=== PATIENT | male | born 1960 | race Caucasian/White ===

== ENCOUNTER 2022-11-30 15:26 | Outpatient (CLI) | payer OTHER, SELFPAY ==
[2022-11-30 22:30] LABS: Creatinine Urine 18.2 mg/dL
[2022-11-30 22:33] LABS: Microalbumin Creatinine Ratio 50 mg/g (0-30); Microalbumin Urine < 1 mg/dL
[2022-11-30 22:45] LABS: PSA Screen* 3.86 ng/mL (0.10-4.00)
== END 2022-11-30 15:27 | disposition home or self-care (01) ==
PROVIDERS: PCP Family Medicine; Visit Provider Family Medicine
DX: Z01.818 Encounter for other preprocedural examination (principal); E11.9 Type 2 diabetes mellitus without complications; E78.00 Pure hypercholesterolemia, unspecified; Z95.1 Presence of aortocoronary bypass graft; Z12.5 Encounter for screening for malignant neoplasm of prostate
CPT/HCPCS: 82043; 82570; 84153

== ENCOUNTER 2022-12-08 08:55 | Outpatient (CLI) | payer OTHER, SELFPAY | END 2022-12-08 08:56 | disposition home or self-care (01) | LOC: OP CLINIC 08:56 | PROVIDERS: PCP Family Medicine; Visit Provider Surgery | DX: Z12.11 Encounter for screening for malignant neoplasm of colon (principal); K57.30 Diverticulosis of large intestine without perforation or abscess without bleeding | CPT/HCPCS: 45378; J2250; J3010 ==

== ENCOUNTER 2024-03-31 09:14 | Outpatient (CLI) | payer OTHER, SELFPAY ==
--- OUTSIDE RECORDS SUMMARY | 2024-03-31 09:17 | XMS_ITS | Clinical Summary ---
Author Organization [facility] Address [address] [place] [address] Care Team Providers Care Engraver Block Name Role Phone Rufus Kohler MD Primary Care Provider [phone] Jamshid Loza MD Unavailable Allergies No known active allergies Medications Medication Sig Dispensed Refills Start Date End Date Status multivitamin w/minerals (THERA-VIT-M) tablet Take 1 tablet by mouth daily Active TURMERIC PO Take 1 tablet by mouth daily Active aspirin (ASA) 325 MG EC tabletIndications:C oronary artery disease involving [place] coronary artery of [place] heart, unspecified whether angina present Take 1 tablet (325 mg) by mouth daily 30 tablet 11/07/2021 Active Vitamin D, Cholecalciferol, 25 MCG (1000 UT) TABS Take 5,000 Units by mouth daily Active Nzvdf-2-dzpc Ethyl Esters (FISH OIL OMEGA-3 FATTY ACID) 320MG/ML oral suspension Take by mouth daily Activ e Ascorbic Acid (VITAMIN C) 500 MG CAPS Take by mouth daily Activ e co-enzyme Q-10 50 MG CAPS Unknown dosage at this time Active aspirin (ASA) 325 MG tablet Take 1 tablet (325 mg) by mouth daily 11/19/2022 Active lisinopril (ZESTRIL) 10 MG tabletIndications:C oronary artery disease involving [place] coronary artery of [place] heart, unspecified whether angina present Take 1 tablet (10 mg) by mouth daily 90 tablet 3 02/02/2024 Active metoprolol succinate ER (TOPROL XL) 25 MG 24 hr tabletIndications:C oronary artery disease involving [place] coronary artery of [place] heart, unspecified whether angina present Take 1 tablet (25 mg) by mouth daily Appointment required for further refills 90 tablet 3 02/02/2024 Active nitroGLYcerin (NITROSTAT) 0.4 MG sublingual tabletIndications:C oronary artery disease involving [place] coronary artery of [place] heart, unspecified whether angina present For chest pain place 1 tablet under the tongue every 5 minutes for 3 doses. If symptoms persist 5 minutes after 1st dose call 911. 30 tablet 3 02/02/2024 Active Active Problems Problem Noted Date Diagnosed Date Coronary artery disease 11/01/2021 Unstable angina 10/30/2021 Abnormal cardiovascular stress test 10/30/2021 Encounters Date Type Department Care Team Description 02/02/2024 8:45 AM CDT Office Visit [address] [place] [address] Jamshid Loza MD Screening for heart disease (Primary Dx); Coronary artery disease involving [place] coronary artery of [place] heart, unspecified whether angina present; S/P CABG (coronary artery bypass graft) 02/02/2024 MyC Medical Advice [address] [place] [address] Jamshid Loza MD 02/02/[address] [place] [phone] Kalyn Estrella RN 02/02/2024 Travel 01/27/2024 7:30 AM CDT Lab [address] [place] [phone] Coronary artery disease 01/26/2024 2:57 PM CDT - 01/26/2024 11:59 PM CDT Hospital Encounter [facility] [address] [place] [address] [address] [place] [phone] Jamshid Loza MD 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); Dyspnea on exertion Discharge Disposition: Home or Self Care 01/26/2024 Travel 01/26/2024 MyC Medical Advice [address] [place] [phone] Jamshid Loza MD 01/21/2024 MyC Medical Advice [facility] [address] [facility] [address] [place] [address] Stella Emmanuel 01/21/2024 Telephone [facility] [address] [facility] [address] [place] [address] Neda Justin, RN Appointment 01/20/2024 MyC Medical Advice M [facility] [address] [facility] [address] [place] [phone] Jamshid Loza MD MyChart Communication from Last 3 Months Immunizations Name Administration Dates Next Due TDAP Vaccine (Adacel) 08/27/2014 Family History Medical History Relation Comments Coronary Artery Disease Brother estimate d age onset per pt Coronary Artery Disease Father both bro ther and father with borderline early coronary artery disease Relation Status Comments Brother Father Social History Tobacco Use Types Packs/Day Years Used Date Smoking Tobacco: Never Smokeless Tobacco: Never Tobacco Cessation:Counseling Given: Not Answered Alcohol Use Standard Drinks/Week Comments Not Currently 0 (1 standard drink = 0.6 oz pur e alcohol) Adolescent Education Answer Date Record ed Getting School Help Needed Not on file 08/08 Sex and Gender Information Value Date Recorded Sex Assigned at Not on file Gender Identity Not on file Sexual Orientation Not on file Last Filed Vital Signs Vital Sign Reading Time Taken Comments Blood Pressure 120/66 02/02/2024 8:51 AM CDT Pulse 82 02/02/2024 8:51 AM CDT Temperature 36.8 ??C (98.2 ??F) 11/08/2021 7:31 AM CS T Respiratory Rate 18 11/08/2021 7:[address] MAINTENANCE SUPERVISOR Oxygen Saturation 99% 02/02/2024 8:51 AM CDT Inhaled Oxygen Concentration - - Weight 76.3 kg (168 lb 3.2 oz) 02/02/2024 8:51 A M CDT Height 167.6 cm (5' 6) 02/02/2024 8:51 AM CDT Body Mass Index 27.15 02/02/2024 8:51 AM CDT Plan of Treatment Health Maintenance Due Date Last Done Comments ADVANCE CARE PLANNING 1960 ANNUAL REVIEW OF HM ORDERS 1960 CT COLONOGRAPHY 1961 FIT 1960 FLEX SIG 1960 YEARLY PREVENTIVE VISIT 1960 sDNA (Cologuard) 1960 Pneumococcal Vaccine: Pediatrics (0 to 5 Years) and At-Risk Patients (6 to 64 Years) (1 of 2 - PCV) 1967 HIV SCREENING 1976 HEPATITIS C SCREENING 1979 ZOSTER IMMUNIZATION (1 of 2) 2011 RSV VACCINE ( & 60+) (1 - 1-dose 60+ series) 2021 COLONOSCOPY 10/24/2021 10/24/2011 COLORECTAL CANCER SCREENING 10/24/2021 COVID-19 Vaccine ( - season) 2023 PHQ-2 (once per calendar year) 2023 INFLUENZA VACCINE (Season Ended) 2024 DTAP/TDAP/TD IMMUNIZATION (2 - Td or Tdap) 08/27/2024 08/27/2014, 10/25/2013, 02/03/2007 LIPID 01/26/2025 01/27/2024, 10/26, 01/20/2022, Additional history exists GLUCOSE 01/26/2027 01/27/2024, 03/26, 11/08/2021, Additional history exists HPV IMMUNIZATION Aged Out No longer e ligible based on patient's age to complete this topic IPV IMMUNIZATION Aged Out No longer e ligible based on patient's age to complete this topic MENINGITIS IMMUNIZATION Aged Out No l onger eligible based on patient's age to complete this topic RSV MONOCLONAL ANTIBODY Aged Out No l onger eligible based on patient's age to complete this topic Procedures Procedure Name Priority Date/Time Associated Diagnosis Comments EKG 12-LEAD COMPLETE W/READ - CLINICS Routine 02/02/2024 Screening for heart disease HEMOGLOBIN A1C Routine 01/27/2024 7:35 AM CDT Coronary artery disease LIPID PROFILE Routine 01/27/2024 7:35 AM CDT Coronary artery disease BASIC METABOLIC PANEL Routine 01/27/2024 7:35 AM CDT Coronary artery disease ECHO COMPLETE WITH CONTRAST Routine 01/26/2024 3:35 PM CDT 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 Yes 01/27/2024 5:56 PM CDT [facility] Blood STRUCTURE OF LEFT UPPER LIMB / Unknown Venipuncture / Unknown 01/27/2024 7:35 AM CDT 01/27/2024 7:39 AM CDT Narrative [facility] - 01/27/2024 5:56 PM CDT Cholesterol Desirable: ??<200 mg/dL Triglycerides Normal: ??Less than 150 mg/dL Borderline High: ??150-199 mg/dL High: ??200-499 mg/dL Very High: ??Greater than or equal to 500 mg/dL Direct Measure HDL Female: ??Greater than or equal to 50 mg/dL Male: ??Greater than or equal to 40 mg/dL LDL Cholesterol Desirable: ??<100mg/dL Above Desirable: ??100-129 mg/dL Borderline High: ??130-159 mg/dL High: ??160-189 mg/dL Very High: ??>= 190 mg/dL Non HDL Cholesterol Desirable: ??130 mg/dL Above Desirable: ??130-159 mg/dL Borderline High: ??160-189 mg/dL High: ??190-219 mg/dL Very High: ??Greater than or equal to 220 mg/dL Jamshid Loza MD LAB - BLOOD ORDERABL ES [facility] [place] [facility] [address] [facility] [address] [facility], Room [address] [place] [address] [address] Lab (1st floor, no room number) [place] [id number] * Hemoglobin A1c (01/27/2024 7:35 AM CDT) Hemoglobin A1C 5.5 <5.7 % 01/27/2024 8:08 AM CDT [facility] Comment: Normal <5.7% Prediabetes 5.7-6.4% ?? Diabetes 6.5% or higher Note: Adopted from ADA consensus guidelines. Blood STRUCTURE OF LEFT UPPER LIMB / Unknown Venipuncture / Unknown 01/27/2024 7:35 AM CDT 01/27/2024 7:39 AM CDT Jamshid Loza MD LAB - BLOOD ORDERABL ES Performing Organization Address City/[facility]/ZIP Co de Phone Number LABORATORY [facility] [address] Lab (1st floor, no room number) [place] [address] * (ABNORMAL) Basic metabolic panel (01/27/2024 7:35 AM CDT) Sodium 141 135 - 145 mmol/L 01/27/2024 8:14 AM CDT [facility] Comment:Reference intervals for this test were updated on 07/20/2023 to more accurately reflect our healthy population. There may be differences in the flagging of prior results with similar values performed with this method. Interpretation of those prior results can be made in the context of the updated reference intervals. Potassium 4.6 3.4 - 5.3 mmol/L 01/27/2024 8:14 AM CDT LABORATORY Chloride 106 98 - 107 mmol/L 01/27/2024 8:14 AM CDT LABORATORY Carbon Dioxide (CO2) 23 22 - 29 mmol/L 01/27/2024 8:14 AM CDT LABORATORY Anion Gap 12 7 - 15 mmol/L 01/27/2024 8:14 AM CDT LABORATORY Urea Nitrogen 19.0 8.0 - 23.0 mg/dL 01/27/2024 8:14 AM CDT LABORATORY Creatinine 0.71 0.67 - 1.17 mg/dL 01/27/2024 8:14 AM CDT LABORATORY GFR Estimate >90 >60 mL/min/1. 73m2 01/27/2024 8:14 AM CDT LABORATORY Calcium 9.3 8.8 - 10.2 mg/dL 01/27/2024 8:14 AM CDT LABORATORY Glucose 107(H) 70 - 99 mg/dL 01/27/2024 8:14 AM CDT LABORATORY Blood STRUCTURE OF LEFT UPPER LIMB / Unknown Venipuncture / Unknown 01/27/2024 7:35 AM CDT 01/27/2024 7:39 AM CDT Jamshid Loza MD LAB - BLOOD ORDERABL ES LABORATORY [facility] [address] [facility] Lab (1st floor, no room number) [place] [address], [facility] * ECHO COMPLETE WITH CONTRAST (01/26/2024 3:35 PM CDT) LVEF 55-60% CARDIOLOGY RESULTS Anatomical Region Laterality Modality Echocardiography 01/26/2024 3:00 PM CDT Narrative 01/26/2024 11:24 PM CDT [id number]^DAGO^JAMSHID^[facility] Echocardiography Laboratory [address] [place] [address] Name: KAYLAH LIU : 1960 Study Date: 01/26/2024 03:00 PM Age: 63 yrs Gender: Male Patient Location: [facility] Reason For Study: 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 Optison ([facility] #[id number]) given intravenously. Interpretation Summary Left ventricular systolic function is normal. The visual ejection fraction is 55-60%. Normal right ventricular size and function. No significant valve dysfunction. The inferior vena cava was normal in size with preserved respiratory variability. There is no pericardial effusion. No change from study dated 01/06/2021. Left Ventricle The left ventricle is normal in size. Left ventricular systolic function is normal. The visual ejection fraction is 55-60%. Left ventricular diastolic function is indeterminate. Normal left ventricular wall motion. Right Ventricle The right ventricle is normal size. The right ventricular systolic function is normal. Atria Normal left atrial size. Right atrial size is normal. Mitral Valve There is mild mitral annular calcification. Tricuspid Valve The tricuspid valve is not well visualized, but is grossly normal. The right ventricular systolic pressure is approximated at 24.3 mmHg plus the right atrial pressure. Right ventricular systolic pressure is normal. Aortic Valve The aortic valve is trileaflet with aortic valve sclerosis. Pulmonic Valve The pulmonic valve is normal in structure and function. Vessels The aortic root is normal size. Normal size ascending aorta. The inferior vena cava was normal in size with preserved respiratory variability. Pericardium There is no pericardial effusion. MMode/2D Measurements & Calculations IVSd: 0.93 cm LVIDd: 4.6 cm LVIDs: 3.0 cm LVPWd: 0.90 cm FS: 35.6 % LV mass(C)d: 142.4 grams LV mass(C)dI: 76.9 grams/m2 asc Aorta Diam: 3.8 cm Asc Ao diam index BSA (cm/m2): 2.0 Asc Ao diam index Ht(cm/m): 2.3 EF Biplane: 58.7 % LA Volume (BP): 27.4 ml LA Volume Index (BP): 14.8 ml/m2 RV Base: 2.8 cm RWT: 0.39 TAPSE: 1.2 cm Doppler Measurements & Calculations MV E max dimitris: 59.1 cm/sec MV A max dimitris: 75.4 cm/sec MV E/A: 0.78 MV dec time: 0.22 sec Ao V2 max: 166.7 cm/sec Ao max P.0 mmHg Ao V2 mean: 105.7 cm/sec Ao mean P.3 mmHg Ao V2 VTI: 28.5 cm LV V1 max P.7 mmHg LV V1 max: 95.8 cm/sec LV V1 VTI: 18.5 cm PA acc time: 0.12 sec TR max dimitris: 246.4 cm/sec TR max P.3 mmHg AV Dimitris Ratio (DI): 0.57 E/E' av.8 Lateral E/e': 7.3 Medial E/e': 8.2 RV S Dimitris: 6.9 cm/sec Report approved by: Adilene Munroe 01/26/2024 11:24 PM Procedure Note Tereza Dillard MD - 01/26/2024 [id number]^DAGO^JAMSHID^[facility] Echocardiography Laboratory [address] [place], [place] [address] Name: KAYLAH LIU : 1960 Study Date: 01/26/2024 03:00 PM Age: 63 yrs Gender: Male Patient Location: [facility] Reason For Study: Ischemic heart disease due to coronary arteryobstruction (H), I Ordering Physician: JAMSHID LOZA Referring Physician: JAMSHID LOZA Performed By: Neo Juan BSA: 1.9 m2 Height: 66 in Weight: 167 lb HR: 76 BP: 128/80 mmHg Procedure Complete Echo Adult. Optison ([facility] #[id number]) given intravenously. Interpretation Summary Left ventricular systolic function is normal. The visual ejection fraction is 55-60%. Normal right ventricular size and function. No significant valve dysfunction. The inferior vena cava was normal in size with preserved respiratory variability. There is no pericardial effusion. No change from study dated 01/06/2021. Left Ventricle The left ventricle is normal in size. Left ventricular systolic functionis normal. The visual ejection fraction is 55-60%. Left ventriculardiastolic function is indeterminate. Normal left ventricular wall motion. Right Ventricle The right ventricle is normal size. The right ventricular systolicfunction is normal. Atria Normal left atrial size. Right atrial size is normal. Mitral Valve There is mild mitral annular calcification. Tricuspid Valve The tricuspid valve is not well visualized, but is grossly normal. Theright ventricular systolic pressure is approximated at 24.3 mmHg plus theright atrial pressure. Right ventricular systolic pressure is normal. Aortic Valve The aortic valve is trileaflet with aortic valve sclerosis. Pulmonic Valve The pulmonic valve is normal in structure and function. Vessels The aortic root is normal size. Normal size ascending aorta. The inferiorvena cava was normal in size with preserved respiratory variability. Pericardium There is no pericardial effusion. MMode/2D Measurements & Calculations IVSd: 0.93 cm LVIDd: 4.6 cm LVIDs: 3.0 cm LVPWd: 0.90 cm FS: 35.6 % LV mass(C)d: 142.4 grams LV mass(C)dI: 76.9 grams/m2 asc Aorta Diam: 3.8 cm Asc Ao diam index BSA (cm/m2): 2.0 Asc Ao diam index Ht(cm/m): 2.3 EF Biplane: 58.7 % LA Volume (BP): 27.4 ml LA Volume Index (BP): 14.8 ml/m2 RV Base: 2.8 cm RWT: 0.39 TAPSE: 1.2 cm Doppler Measurements & Calculations MV E max dimitris: 59.1 cm/sec MV A max dimitris: 75.4 cm/sec MV E/A: 0.78 MV dec time: 0.22 sec Ao V2 max: 166.7 cm/sec Ao max P.0 mmHg Ao V2 mean: 105.7 cm/sec Ao mean P.3 mmHg Ao V2 VTI: 28.5 cm LV V1 max P.7 mmHg LV V1 max: 95.8 cm/sec LV V1 VTI: 18.5 cm PA acc time: 0.12 sec TR max dimitris: 246.4 cm/sec TR max P.3 mmHg AV Dimitris Ratio (DI): 0.57 E/E' av.8 Lateral E/e': 7.3 Medial E/e': 8.2 RV S Dimitris: 6.9 cm/sec Report approved by: Adilene Munroe 01/26/2024 11:24 PM Jamshid Loza MD CV ECHO ORDERABLES from Last 3 Months Advance Directives For more information, please contact: [phone] * Full Code (Latest Code Status on File) Date Activated Date Inactivated Comments 11/04/2021 1:17 PM 11/08/2021 1:15 PM All basic an d advanced life-sustaining interventions are performed as appropriate Question Answer Comments Code status determined by: Unable to dis cuss and no AD/POLST on file; continue PREVIOUSLY ORDERED code status * Full Code Date Activated Date Inactivated Comments 11/01/2021 9:59 PM 11/04/2021 1:17 PM All basic and advanced life-sustaining interventions are performed as appropriate Question Answer Comments Code status determined by: Discussion with patie nt/ legal decision maker * Full Code Date Activated Date Inactivated Comments 11/01/2021 2:30 PM 11/01/2021 8:54 PM Question Answer Comments Code status determined by: Discussion with patie nt/ legal decision maker * Full Code Date Activated Date Inactivated Comments 10/30/2021 2:53 PM 11/01/2021 2:30 PM All basic and advanced life-sustaining interventions are performed as appropriate Question Answer Comments Code status determined by: Discussion with patie nt/ legal decision maker Care Teams Engraver Block Relationship Specialty Start Date End Date Rufus Kohler MD PCP - General Family Medicine 11/07/21 Jamshid Loza MD [address] [facility] [address] [place] [address] Assigned Heart and Vascular Provider 01/18/22
--- OUTSIDE RECORDS SUMMARY | 2024-03-31 09:17 | XMS_ITS | Encounter Summary ---
Author Organization [facility] Address [address] [place] [address]. [place] [address] Care Team Providers Care Chief Lifestyle Officer Name Role Phone Rufus Kohler MD Primary Care Provider [phone] Yang Tran MD Unavailable Reason for Visit * Reason Onset Date Comments Refill Request 12/22/2023 Lisinopril Encounter Details Date Type Department Care Team (Late st Contact Info) Description 12/22/2023 Refill [facility] Heart [facility] [address] [place] [address] Yang Tran MD [address] [facility] [address] [place], [place] [id number] Refill Request (Lisinopril) Social History Tobacco Use Types Packs/Day Years Used Date Smoking Tobacco: Never Smokeless Tobacco: Never Alcohol Use Standard Drinks/Week Comments Not Currently 0 (1 standard drink = 0.6 oz pur e alcohol) Adolescent Education Answer Date Record ed Getting School Help Needed Not on file 08/08 Sex and Gender Information Value Date Recorded Sex Assigned at Not on file Gender Identity Not on file Sexual Orientation Not on file documented as of this encounter Miscellaneous Notes * Telephone Encounter - Linda Schwartz RN - 12/22/2023 9:19 AM CST [facility] Cardiology Refill Guideline reviewed. Medication meets criteria for refill. ACCOUNTING CLERK documented in this encounter Plan of Treatment Not on file documented as of this encounter Visit Diagnoses Diagnosis Coronary artery disease involving the [place] coronary artery of the [place] heart, unspecified whether angina present documented in this encounter Care Teams Chief Lifestyle Officer Relationship Specialty Start Date End Date Rufus Kohler MD PCP - General Family Medicine 11/07/21 Yang Tran MD [address] [place] [address] Assigned Heart and Vascular Provider 01/18/22 documented as of this encounter
--- OUTSIDE RECORDS SUMMARY | 2024-03-31 09:17 | XMS_ITS | Encounter Summary ---
Author Organization [place] Address [address] [facility] 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) Dyspnea on exertion Procedures Echocardiogram Complete [facility] TTE W/DOPPLER, COMPLETE [facility] ECHO COMPLETE W DOPPLER W CONTRAST [facility] ECHO COMPLETE W DOPPLER W/O CONTRAST [facility] IV PUSH SINGLE, INITIAL SUBSTANCE [facility] US GUIDE FOR PERICARDIOCENTESIS [facility] ECHO MYOCARD BX ZZC INJECTION, PERFLUTREN LIPID MICROSPHERES, PER ML [facility] STATISTIC IV PUSH SINGLE INITIAL SUBSTANCE VA ECHO MYOCARD BX VA INJECTION, PERFLUTREN LIPID MICROSPHERES, PER ML VA TTE W/DOPPLER, COMPLETE VA IV PUSH SINGLE, INITIAL SUBSTANCE VA TTE W/DOPPLER, COMPLETE VA TTE W/DOPPLER, COMPLETE HC US GUIDE FOR PERICARDIOCENTESIS HC ECHO MYOCARD BX HC IV PUSH SINGLE, INITIAL SUBSTANCE HC STATISTIC IV PUSH SINGLE INITIAL SUBSTANCE HC ECHO COMPLETE W DOPPLER W CONTRAST HC ECHO COMPLETE W DOPPLER W/O CONTRAST Jamshid Loza MD [address] [facility] [address] [place] [address] [facility] [address] [facility] [address] [place] [address] Referral ID Status Reason Start Date Expiration Date Visits Re quested Visits Authorized [id number] Closed 01/26/2024 01/23/2025 1 1 Reason for Visit * CV Testing (Routine) - Closed Specialty Diagnoses / Procedures Referred By Patty t Referred To Contact Cardiology Diagnoses 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) Dyspnea on exertion Procedures Echocardiogram Complete [facility] TTE W/DOPPLER, COMPLETE [facility] ECHO COMPLETE W DOPPLER W CONTRAST [facility] ECHO COMPLETE W DOPPLER W/O CONTRAST [facility] IV PUSH SINGLE, INITIAL SUBSTANCE [facility] US GUIDE FOR PERICARDIOCENTESIS [facility] ECHO MYOCARD BX ZZC INJECTION, PERFLUTREN LIPID MICROSPHERES, PER ML [facility] STATISTIC IV PUSH SINGLE INITIAL SUBSTANCE VA ECHO MYOCARD BX VA INJECTION, PERFLUTREN LIPID MICROSPHERES, PER ML VA TTE W/DOPPLER, COMPLETE VA IV PUSH SINGLE, INITIAL SUBSTANCE VA TTE W/DOPPLER, COMPLETE VA TTE W/DOPPLER, COMPLETE HC US GUIDE FOR PERICARDIOCENTESIS HC ECHO MYOCARD BX HC IV PUSH SINGLE, INITIAL SUBSTANCE HC STATISTIC IV PUSH SINGLE INITIAL SUBSTANCE HC ECHO COMPLETE W DOPPLER W CONTRAST HC ECHO COMPLETE W DOPPLER W/O CONTRAST Jamshid Loza MD [address] [place] [address] [facility] [address] [place] [address] Referral ID Status Reason Start Date Expiration Date Visits Re quested Visits Authorized [id number] Closed 01/26/2024 01/23/2025 1 1 Encounter Details Date Type Department Care Team (Latest Contact Info) Description 01/26/2024 2:57 PM CDT - 01/26/2024 11:59 PM CDT Hospital Encounter [facility] [address] [address] Jamshid Loza MD [address] [place] [id number] 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); Dyspnea on exertion Discharge Disposition: Home or Self Care Social History Tobacco Use Types Packs/Day Years [...] on file documented as of this encounter Medications at Time of Discharge Medication Sig Dispensed Refills Start Date End Date Ascorbic Acid (VITAMIN C) 500 MG CAPS Take by mouth daily aspirin (ASA) 325 MG EC tabletIndications:Eve nary artery disease involving [place] coronary artery of [place] heart, unspecified whether angina present Take 1 tablet (325 mg) by mouth daily 30 tablet 11/07/2021 co-enzyme Q-10 50 MG CAPS Unknown dosage at this time multivitamin w/minerals (THERA-VIT-M) tablet Take 1 tablet by mouth daily Dcwji-0-ocdh Ethyl Esters (FISH OIL OMEGA-3 FATTY ACID) 320MG/ML oral suspension Take by mouth daily TURMERIC PO Take 1 tablet by mouth daily Vitamin D, Cholecalciferol, 25 MCG (1000 UT) TABS Take 5,000 Units by mouth daily aspirin (ASA) 325 MG tablet Take 1 tablet (325 mg) by mouth daily 11/19/2022 lisinopril (ZESTRIL) 10 MG tabletIndications:Eve nary artery disease involving [place] coronary artery of [place] heart, unspecified whether angina present Take 1 tablet (10 mg) by mouth daily 90 tablet 12/22/2023 02/02/2024 metoprolol succinate ER (TOPROL XL) 25 MG 24 hr tabletIndications:Eve nary artery disease involving [place] coronary artery of [place] heart, unspecified whether angina present Take 1 tablet (25 mg) by mouth daily Appointment required for further refills 90 tablet 12/21/2023 02/02/2024 nitroGLYcerin (NITROSTAT) 0.4 MG sublingual tabletIndications:Eve nary artery disease involving [place] coronary artery of [place] heart, unspecified whether angina present For chest pain place 1 tablet under the tongue every 5 minutes for 3 doses. If symptoms persist 5 minutes after 1st dose call 911. 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) Dyspnea on exertion documented in this encounter Results * ECHO COMPLETE WITH CONTRAST (01/26/2024 3:35 PM CDT) LVEF 55-60% CARDIOLOGY RESULTS Anatomical Region Laterality Modality Echocardiography 01/26/2024 3:00 PM CDT Narrative 01/26/2024 11:24 PM CDT [id number]^DAGO^JAMSHID^Dave [facility] Echocardiography Laboratory [address] [place] [address] Name: KAYLAH LIU : 1960 Study Date: 01/26/2024 03:00 PM Age: 63 yrs Gender: Male Patient Location: [facility] Reason For Study: 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 Optison ([facility] #[id number]) given intravenously. Interpretation Summary Left ventricular systolic [...] Procedure Note Tereza Dillard MD - 01/26/[id number]^DAGO^JAMSHID^Dave [facility] Echocardiography Laboratory [address] [place] [address] Name: KAYLAH LIU : 1960 Study Date: 01/26/2024 03:00 PM Age: 63 yrs Gender: Male Patient Location: [facility] Reason For Study: Ischemic heart disease due to coronary arteryobstruction (H), I Ordering Physician: JAMSHID LOZA Referring Physician: JAMSHID LOZA Performed By: Neo Juan BSA: 1.9 m2 Height: 66 in Weight: 167 lb HR: 76 BP: 128/80 mmHg Procedure Complete Echo Adult. Optison ([facility] #[id number]) given intravenously. 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) Acute coronary occlusion without mycocardial infarction Dyspnea on exertion Other dyspnea and respiratory abnormality documented in this encounter Administered Medications Inactive Administered Medications - up to 3 most recent administrations Medication Order MAR Action Action Date Dose Rate Site perflutren diluted 1mL to 2mL with saline (OPTISON) diluted injection 9 mL 9 mL, Intravenous, ONCE, On Wed01/26/24 at 1600, For 1 dose $Given 01/26/2024 3:36 PM CDT 9 mLs sodium chloride (PF) 0.9% PF flush 10 mL 10 mL, Intravenous, ONCE, On Wed01/26/24 at 1600, For 1 dose $Given 01/26/2024 3:36 PM CDT 20 mLs documented in this encounter Care Teams Telegraphic Typewriter Installer Relationship Specialty Start Date End Date Rufus Kohler MD PCP - General Family Medicine 11/07/21 Jamshid Loza MD [address] [place] [address] Assigned Heart and Vascular Provider 01/18/22 documented as of this encounter
--- OUTSIDE RECORDS SUMMARY | 2024-03-31 09:17 | XMS_ITS | Encounter Summary ---
Author Organization [place] Address [address] [facility] [place] [address] Care Team Providers Care Deli Cook Name Role Phone Rufus Kohler MD Primary Care Provider [phone] Yang rTan MD Unavailable Encounter Details Date Type Department Care Team (Latest Contact Info) Description 02/02/2024 Travel Social History Tobacco Use Types Packs/Day Years [...] on file documented as of this encounter Plan of Treatment Not on file documented as of this encounter Visit Diagnoses Not on filedocumented in this encounter Care Teams Deli Cook Relationship Specialty Start Date End Date Rufus Kohler MD PCP - General Family Medicine 11/07/21 Yang Tran MD [address] , [facility] [address] [place], [place] [address] Assigned Heart and Vascular Provider 01/18/22 documented as of this encounter
--- OUTSIDE RECORDS SUMMARY | 2024-03-31 09:17 | XMS_ITS | Encounter Summary ---
Author Organization [place] Address [address] [place] [address] Care Team Providers Care Sportspersons Name Role Phone Rufus Kohler MD Primary Care Provider [phone] Yang Tran MD Unavailable Encounter Details Date Type Department Care Team (Latest Contact Info) Description 01/26/2024 Travel Social History Tobacco Use Types Packs/Day [...] on filedocumented in this encounter Care Teams Sportspersons Relationship Specialty Start Date End Date Rufus Kohler MD PCP - General Family Medicine 11/07/21 Yang Tran MD [address] , [facility] [address] [place], [place] [address] Assigned Heart and Vascular Provider 01/18/22 documented as of this encounter
--- OUTSIDE RECORDS SUMMARY | 2024-03-31 09:17 | XMS_ITS | Encounter Summary ---
Author Organization [place] Address [address] [place] [address]. [place] [address] Care Team Providers Care Web Communications Specialist Name Role Phone Rufus Kohler MD Primary Care Provider [phone] Yang Tran MD Unavailable Encounter Details Date Type Department Care Team (Late st Contact Info) Description 02/02/2024 MyC Medical Advice [facility] [place] [address] [facility] [address] [place], [place] [id number] Yang Tran MD [address] [facility] [address] [place], [place] [id number] Social History Tobacco Use Types Packs/Day Years [...] encounter Miscellaneous Notes * Telephone Encounter - Parris Loja RN - 02/03/2024 10:56 AM CDT Images from the original note were not included. Edilberto Robles [facility] Heart Team 2 [facility]'s [facility] their fax #is if it don't work let me know. 1100 office note, echo, EKG and labs faxed to [facility] as requested. Update sent to patient. * Telephone Encounter - Parris Loja RN - 02/03/2024 8:40 AM CDT Images from the original note were not included. My chart message from patient: Edilberto Robles [facility] Heart Team [address] Tran give you the info that [facility] needs for my dot health card? Reply to patient: Augusto, Mr. Robles, We are waiting for the dictation to drop into your chart. Where are we sending the office note and echo? We work out of the [place] office, so we need the nameof your provider and the fax # to send records. Thank you Team 2 R.N.s [phone] documented in this encounter Plan of Treatment Not on file documented as of this encounter Visit Diagnoses Not on filedocumented in this encounter Care Teams Web Communications Specialist Relationship Specialty Start Date End Date Rufus Kohler MD PCP - General Family Medicine 11/07/21 Yang Tran MD [address] [facility] [address] [place] [address] Assigned Heart and Vascular Provider 01/18/22 documented as of this encounter
--- OUTSIDE RECORDS SUMMARY | 2024-03-31 09:17 | XMS_ITS | Encounter Summary ---
Author Organization [place] Address [address] [place] [address] Care Team Providers Care Core Feeder Name Role Phone Rufus Kohler MD Primary Care Provider [phone] Yang Tran MD Unavailable Encounter Details Date Type Department Care Team (Late st Contact Info) Description 02/02/2024 Telephone [facility] [address] [place] [id number] Kalyn Estrella RN Social History Tobacco Use Types Packs/Day Years [...] encounter Miscellaneous Notes * Telephone Encounter - Kalyn Estrella RN - 02/02/2024 10:20 AM CDT OV today 02-02-24DrJo Tran note note completed at this time. Send when completed. 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 I believe it is [facility] thanks documented in this encounter Plan of Treatment Not on file documented as of this encounter Visit Diagnoses Not on filedocumented in this encounter Care Teams Core Feeder Relationship Specialty Start Date End Date Rufus Kohler MD PCP - General Family Medicine 11/07/21 Yang Tran MD [address] [facility] [address] [place] [id number] Assigned Heart and Vascular Provider 01/18/22 documented as of this encounter
--- OUTSIDE RECORDS SUMMARY | 2024-03-31 09:17 | XMS_ITS | Encounter Summary ---
Author Organization [place] Address [address] [place] [address]. [place] [address] Care Team Providers Care Steam Shovelman Name Role Phone Rufus Kohler MD Primary Care Provider [phone] Yang Tran MD Unavailable Reason for Visit * Reason Onset Date Comments MyChart Communication 01/20/2024 Encounter Details Date Type Department Care Team (Latest Contact Info) Description 01/20/2024 [facility] Adv[facility] [address] [facility] [address] [place] [address] Yang Tran MD [address] [facility] [address] [place] [address] MyChart Communication Social History Tobacco Use Types Packs/Day Years [...] Telephone Encounter - Parris Loja RN - 01/20/2024 4:06 PM CDT Images from the original note were not included. 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 If you have any question please contact me. I will start working next week sometime. Lookingfoward to hearing from you. Augusto, Mr. Robles, Your last visit here was on 11/19/2022. That is more than a year ago. We cannot write a DOT letter off of last year's information. You need to schedule an office visit. Your last stress test was in 2021. What are your requirements from the DOT provider if a cardiologyclearance is needed? Do you have any recent lab work to review? If not, we will have to order that before the visit. Have you had any new cardiac symptoms: chest pain, SOB, fatigue, palpitations? Thank you Team 2 RJoN.s [phone] Reply from patient: Edilberto Robles [facility] Heart Team 2 It Don't Call for A stress test It asks if After 3 month waiting period the Sternum is Healed, Asymptomatic, Echo LVEF _> 40%, Tolerant to Medications. No new symptoms. If I need a appointment I'll Go to any of the three [facility] clinics to get it done so if there areany openings or cancelations I will go. This is what they Need Dr Tran has given me the go the last two years Will message Dr. Tran to review documented in this encounter Plan of Treatment Not on file documented as of this encounter Visit Diagnoses Not on filedocumented in this encounter Care Teams Steam Shovelman Relationship Specialty Start Date End Date Rufus Kohler MD PCP - General Family Medicine 11/07/21 Yang Tran MD [address] [place] [address] Assigned Heart and Vascular Provider 01/18/22 documented as of this encounter
--- OUTSIDE RECORDS SUMMARY | 2024-03-31 09:17 | XMS_ITS | Encounter Summary ---
Author Organization [place] Address [address] [facility] [place] [address] Care Team Providers Care Water Taxi Captain Name Role Phone Rufus Kohler MD Primary Care Provider [phone] Yang Tran MD Unavailable Encounter Details Date Type Department Care Team (Late st Contact Info) Description 01/26/2024 MyC Medical Advice [facility] [address] [facility] [address] [place] [address] Yang Tran MD [address] [facility] [address] [place], [place] [address] Social History Tobacco Use Types Packs/Day Years [...] Telephone Encounter - Parris Loja RN - 01/26/2024 11:24 AM CDT Images from the original note were not included. My chart message from patient: Edilberto Robles [facility] Heart Team 2 I have still not heard from anyone for setting up the Eco or the blood test before my visit with [facility]. Reply to patient: Augusto, Mr. Robles, We escalated your request for the echo and lab work to scheduling on Wednesday. We can send that again. Please try calling the central scheduling at [phone]. They can at least do the lab appointment. They may have to transfer you to a special team to find the echo spot - we are booked out for several weeks for most heart tests. Thank you Team 2 R.N.s [phone] documented in this encounter Plan of Treatment Not on file documented as of this encounter Visit Diagnoses Not on filedocumented in this encounter Care Teams Water Taxi Captain Relationship Specialty Start Date End Date Rufus Kohler MD PCP - General Family Medicine 11/07/21 Yang Tran MD [address] [facility] [address] [place] [address] Assigned Heart and Vascular Provider 01/18/22 documented as of this encounter
--- OUTSIDE RECORDS SUMMARY | 2024-03-31 09:17 | XMS_ITS | Encounter Summary ---
Author Organization [facility] Address [address] [facility] [place] [address] Care Team Providers Care Business Continuity Global Director Name Role Phone Rufus Kohler MD Primary Care Provider [phone] Jamshid Loza MD Unavailable Reason for Referral * Consultation (Routine: Next available opening) - Pending Review Specialty Diagnoses / Procedures Referred By Patty vera Referred To Contact Cardiovascular Disease Diagnoses S/P CABG (coronary artery bypass graft) Jamshid Loza MD [address] [place] [address] Referral ID Status Reason Start Date Expiration Date V isits Requested Visits Authorized [id number] Pending Review 02/02/2024 02/01/2025 1 1 Question Answer Follow-up with: Self Scheduling Instructions: [facility] will call you to coordinate your care as prescribed by your provider. If you have concerns about scheduling, please call [phone]. Comments [facility] will call you to coordinate your care as prescribed by your provider. If you have concerns about scheduling, please call [phone]. Reason for Visit * Reason Comments RECHECK Follow up DIANE delacruz Encounter Details Date Type Department Care Team (Late st Contact Info) Description 02/02/2024 8:45 AM CDT Office Visit [facility] [address] [place], [place] [id number] Jamshid Loza MD [address] [place] [address] Screening for heart disease (Primary Dx); Coronary artery disease involving tribal coronary artery of tribal heart, unspecified whether angina present; S/P CABG (coronary artery bypass graft) Social History Tobacco Use Types Packs/Day Years [...] on file documented as of this encounter Last Filed Vital Signs Vital Sign Reading Time Taken Comments Blood Pressure 120/66 02/02/2024 8:51 AM CDT Pulse 82 02/02/2024 8:51 AM CDT Temperature - - Respiratory Rate - - Oxygen Saturation 99% 02/02/2024 8:51 AM CDT Inhaled Oxygen Concentration - - Weight 76.3 kg (168 lb 3.2 oz) 02/02/2024 8:51 A M CDT Height 167.6 cm (5' 6) 02/02/2024 8:51 AM CDT Body Mass Index 27.15 02/02/2024 8:51 AM CDT documented in this encounter Patient Instructions * Patient Instructions* Jamshid Loza MD - 02/02/2024 8:45 AM CDT Images from the original note were not included. February 02, 2024 Thank you for allowing our Cardiology team to participate in your care. Please note the following changes to your heart treatment plan: Medication changes: - none Tests to be done: - fasting lipids in 9 months Follow up: - Follow up in 9 months For scheduling, please call [phone]. Please contact our team through [facility] or our Nurse Team Voicemail service [phone], or the General Clinic [phone] for any questions or concerns. If you are having a medical emergency, please call 911. Sincerely, Jamshid Loza MD, [facility] Cardiology [facility] - [facility] - [place] documented in this encounter Progress Notes * Jamshid Loza MD - 02/02/2024 8:45 AM CDT Images from the original note were not included. Cardiology Clinic Progress Note: February 02, 2024 Patient Name: Kaylah Liu Patient Consult indication: CAD HPI: I had the opportunity to see patient Kaylah Liu in cardiology clinic for a follow up visit. Patient is followed by our colleague Rufus Kohler MD with Primary Care. As you know, patient is a 63-year-old male with a past medical history significant for CVA (2002), anterior communicating artery aneurysm, dyslipidemia, hypertension, CAD status post CABG (ASH to LAD, reverse SVG to OM1, reverse SVG to OM 2, 11/04/[address] Arias) with residual 75% stenosis in ramus, who presents for follow-up. I had initially met patient on 10/30/2021 at [facility] when he was undergoing an outpatient exercise stress echocardiogram. The stress test was grossly abnormal, and he was referred to the ED for admission for unstable angina. Patient underwent cardiac catheterization/coronary angiography 10/30/2021 that demonstrated multivessel coronary artery disease, culprit was a 95% proximal LAD stenosis. Patient was transferred to [facility] for CT surgery consultation. On 11/04/2021 patient underwent CABG with ASH to LAD, reverse SVG to OM1, reverse SVG to OM 2. Unfortunately, ramus was found to be very intramyocardial, and was not amenable to bypass grafting. At our meeting on 01/16/2022, we started lisinopril 2.5 mg daily for hypertension. In addition, discussed options for further assessment of the residual 75% stenosis in the ramus that was not able to be bypassed. Patient underwent a nuclear stress test in which he exercised for 10 minutes, achieving 11.1 METS, reached target heart rate. He did not have any abnormal symptoms of chest pain or discomfort. The nuclear stress test showed only a small area of mild infarction in the basal to mid anterolateral segments with a small area of mild adolfo-infarct ischemia. There was noted to be a small areaof mild ischemia in the basal to mid inferior segments. LVEF 60% stress. At that visit, we discussed the results of the nuclear stress test in detail. We discussed revascularization of the residual ramus disease, patient wanted to hold off since he was feeling well at that time. We discussed that he should have a low threshold to revisit this, and to continue monitoring for symptoms suggestive of angina. Since then, patient reports that he has been doing well. Last clinic visit 11/19/2022. At that time he had been doing well. We increased lisinopril for hypertension management. Blood pressure today inclinic 120/66 mmHg. He continues to be active, working a physically demanding job in [employer], denies exertional chest pain, chest pressure, abnormal shortness of breath. No palpitations, dizziness/lightheadedness. Reviewed recent lipids which were suboptimal, we had discussed statin therapy andnonstatin alternatives in the past, patient has declined, favoring supplements in a natural approach. TTE 01/26/2024 LVEF 55 to 60%, normal RV function, no significant valvular abnormalities. ECG today in clinic normal sinus rhythm with first-degree AV block at 63 bpm. Assessment and Plan/Recommendations: # CAD s/p CABG (ASH to LAD, reverse SVG to OM1, reverse SVG to OM 2, 11/04/[address] Arias) with residual 75% stenosis in large ramus (not amenable to bypass grafting due to intramyocardial course). Nuclear stress test 01/26/2022 showed only a small area of mild infarction in the basal to mid anterolateral segments with a small area of mild adolfo-infarct ischemia. There was noted to be a small areaof mild ischemia in the basal to mid inferior segments. LVEF 60% stress. Discussed repeat cardiac catheterization versus continuing medical therapy, since patient continues to be physically active without symptoms concerning for angina, he would like to continue with medical therapy which is reasonable. # HTN. BP elevated. Stable. # HL. Has declined statin therapy. 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 Please do not hesitate to call or page me with any questions or concerns. Sincerely, Jamshid Loza MD, [facility] Cardiology Text Page February 02, 2024 Voice recognition software utilized. Total time spent on this encounter today: Greater than 40 minutes, providing care in this encounterincluding, but not limited to, reviewing prior medical records, laboratory data, imaging studies, diagnostic studies, procedure notes, formulating an assessment and plan, recommendations, discussion and counseling with patient face to face, dictation. Past Medical History: The ASCVD Risk score (Gill DK, et al., 2019) failed to calculate for the following reasons: The patient has a prior [place] or stroke diagnosis Past Medical History: Diagnosis Date Cerebrovascular accident (H) 2003 Coronary artery disease involving tribal coronary artery with unstable angina pectoris (H) 10/2021 CAB x 3. Hypertension Past Surgical History: Past Surgical History: Procedure Laterality Date BYPASS GRAFT ARTERY CORONARY N/A 11/04/2021 Procedure: CORONARY ARTERY BYPASS GRAFT X 3 (ASH-LAD, SV-OM1, SV-OM2 ) WITH LEFT LOWER EXTREMITY ENDOSCOPIC VEIN HARVEST, ON PUMP WITH NAEEM READ BY ANESTHESIOLOGIST; Surgeon: Nino Arias MD; Location: [facility] OR CV CORONARY ANGIOGRAM N/A 10/30/2021 Procedure: Cv Coronary Angiogram; Surgeon: Jules Campbell MD; Location: [facility] CARDIAC CATHLAB CV LEFT HEART CATH N/A 10/30/2021 Procedure: Left Heart Cath; Surgeon: Jules Campbell MD; Location: HEART CARDIAC [facility]ST[facility] Medications (outpatient): Current Outpatient Medications Medication Sig Dispense Refill Ascorbic Acid (VITAMIN C) 500 MG CAPS Take by mouth daily aspirin (ASA) 325 MG EC tablet Take 1 tablet (325 mg) by mouth daily 30 tablet 0 co-enzyme Q-10 50 MG CAPS Unknown dosage at this time lisinopril (ZESTRIL) 10 MG tablet Take 1 tablet (10 mg) by mouth daily 90 tablet 3 metoprolol succinate ER (TOPROL XL) 25 MG 24 hr tablet Take 1 tablet (25 mg) by mouth daily Appointment required for further refills 90 tablet 3 multivitamin w/minerals (THERA-VIT-M) tablet Take 1 tablet by mouth daily nitroGLYcerin (NITROSTAT) 0.4 MG sublingual tablet For chest pain place 1 tablet under the tongue every 5 minutes for 3 doses. If symptoms persist 5 minutes after 1st dose call 911. 30 tablet 3 Wprdo-8-rylv Ethyl Esters (FISH OIL OMEGA-3 FATTY ACID) 320MG/ML oral suspension Take by mouth daily TURMERIC PO Take 1 tablet by mouth daily Vitamin D, Cholecalciferol, 25 MCG (1000 UT) TABS Take 5,000 Units by mouth daily aspirin (ASA) 325 MG tablet Take 1 tablet (325 mg) by mouth daily (Patient not taking: Reported on 02/02/2024) Allergies: No Known Allergies Social History: History Drug Use Unknown History Smoking Status Never Smokeless Tobacco Never Social History Substance and Sexual Activity Alcohol use: Not Currently Family History: Family History Problem Relation Age of Onset Coronary Artery Disease Father 57 both brother and father with borderline early coronary artery disease Coronary Artery Disease Brother 60 estimated age onset per pt Review of Systems: A complete review of systems was negative except as mentioned in the History of Present Illness. Objective & Physical Exam: BP 120/66 Pulse 82 Ht 1.676 m (5' 6) Wt 76.3 kg (168 lb 3.2 oz) SpO2 99% BMI 27.15 kg/m?? Wt Readings from Last 2 Encounters: 02/02/24 76.3 kg (168 lb 3.2 oz) 11/19/22 75.8 kg (167 lb) Body mass index is 27.15 kg/m??. Body surface area is 1.88 meters squared. Constitutional: appears stated age, in no apparent distress, appears to be well nourished Pulmonary: clear to auscultation bilaterally, no wheezes, no rales, no increased work of breathing Cardiovascular: JVP normal, regular rate, regular rhythm, normal S1 and S2, no S3, S4, no murmur appreciated, no lower extremity edema Neurologic: awake, alert, moves all extremities Skin: no jaundice, warm on limited exam Data reviewed: Lab Results Component Value Date WBC 10.8 11/06/2021 WBC 10.0 01/02/2021 RBC 3.58 (L) 11/06/2021 RBC 5.22 01/02/2021 HGB 10.8 (L) 11/06/2021 HGB 15.8 01/02/2021 HCT 32.7 (L) 11/06/2021 HCT 47.9 01/02/2021 MCV 91 11/06/2021 MCV 92 01/02/2021 MCH 30.2 11/06/2021 MCH 30.3 01/02/2021 MCHC 33.0 11/06/2021 MCHC 33.0 01/02/2021 RDW 12.3 11/06/2021 RDW 12.2 01/02/2021 PLT 175 11/08/2021 PLT 207 01/02/2021 Sodium Date Value Ref Range Status 01/27/2024 141 135 - 145 mmol/L Final Comment: Reference intervals for this test were updated on 07/20/2023 to more accurately reflect our healthypopulation. There may be differences in the flagging of prior results with similar values performedwith this method. Interpretation of those prior results can be made in the context of the updated reference intervals. 01/02/2021 140 133 - 144 mmol/L Final Potassium Date Value Ref Range Status 01/27/2024 4.6 3.4 - 5.3 mmol/L Final 11/08/2021 4.2 3.4 - 5.3 mmol/L Final 01/02/2021 4.0 3.4 - 5.3 mmol/L Final Comment: Specimen slightly hemolyzed, potassium may be falsely elevated Chloride Date Value Ref Range Status 01/27/2024 106 98 - 107 mmol/L Final 11/07/2021 107 94 - 109 mmol/L Final 01/02/2021 108 94 - 109 mmol/L Final Carbon Dioxide Date Value Ref Range Status 01/02/2021 26 20 - 32 mmol/L Final Carbon Dioxide (CO2) Date Value Ref Range Status 01/27/2024 23 22 - 29 mmol/L Final 11/07/2021 27 20 - 32 mmol/L Final Anion Gap Date Value Ref Range Status 01/27/2024 12 7 - 15 mmol/L Final 11/07/2021 4 3 - 14 mmol/L Final 01/02/2021 6 3 - 14 mmol/L Final Glucose Date Value Ref Range Status 01/27/2024 107 (H) 70 - 99 mg/dL Final 11/08/2021 137 (H) 70 - 99 mg/dL Final 01/02/2021 117 (H) 70 - 99 mg/dL Final GLUCOSE BY METER POCT Date Value Ref Range Status 11/08/2021 137 (H) 70 - 99 mg/dL Final Urea Nitrogen Date Value Ref Range Status 01/27/2024 19.0 8.0 - 23.0 mg/dL Final 11/07/2021 13 7 - 30 mg/dL Final 01/02/2021 12 7 - 30 mg/dL Final Creatinine Date Value Ref Range Status 01/27/2024 0.71 0.67 - 1.17 mg/dL Final 01/02/2021 0.67 0.66 - 1.25 mg/dL Final GFR Estimate Date Value Ref Range Status 01/27/2024 >90 >60 mL/min/1.73m2 Final 01/02/2021 >90 >60 mL/min/[1.73_m2] Final Calcium Date Value Ref Range Status 01/27/2024 9.3 8.8 - 10.2 mg/dL Final 01/02/2021 9.2 8.5 - 10.1 mg/dL Final Bilirubin Total Date Value Ref Range Status 11/05/2021 1.0 0.2 - 1.3 mg/dL Final Alkaline Phosphatase Date Value Ref Range Status 11/05/2021 41 40 - 150 U/L Final ALT Date Value Ref Range Status 11/13/2022 26 10 - 50 U/L Final AST Date Value Ref Range Status 11/05/2021 120 (H) 0 - 45 U/L Final Recent Labs Lab Test 01/27/24 0735 11/13/22 0751 CHOL 254* 236* HDL 45 50 LDL 197* 172* TRIG 58 68 Lab Results Component Value Date A1C 5.5 01/27/2024 A1C 5.5 11/01/2021 A1C 5.7 01/02/2021 Recent Results (from the past 4320 hour(s)) Echocardiogram Complete Result Value LVEF 55-60% Narrative [id number]^DAGO^JAMSHID^Dave [facility] Echocardiography Laboratory [address] [place] [address] Name: KAYLAH LIU : 1960 Study Date: 01/26/2024 03:00 PM Age: 63 yrs Gender: Male Patient Location: [facility] Reason For Study: 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 Optison ([facility] #[id number]) given intravenously. Interpretation Summary Left ventricular systolic [...] S Dimitris: 6.9 cm/sec Report approved by: Tereza Dillard MDon 01/26/2024 11:24 PM documented in this encounter Plan of Treatment Scheduled Orders Name Type Priority Associated Diagnoses Orde r Schedule Lipid panel reflex to direct LDL Fasting Lab Routine S/P CABG (coronary artery bypass graft) Expected: 10/30/2024 (Approximate), Expires: 02/01/2025 Scheduled Referrals Name Type Priority Associated Diagnoses Orde r Schedule Follow-Up with Cardiology Referral Routine: Next available opening S/P CABG (coronary artery bypass graft) Expected: 10/30/2024 (Approximate), Expires: 02/01/2025 documented as of this encounter Procedures Procedure Name Priority Date/Time Associated Diagnosis Comments EKG 12-LEAD COMPLETE W/READ - CLINICS Routine 02/02/2024 Screening for heart disease documented in this encounter Results * EKG 12-lead complete w/read - Clinics (02/02/2024) Jamshid Loza MD ECG ORDERABLES documented in this encounter Visit Diagnoses Diagnosis Screening for heart disease- Primary Screening for other and unspecified cardiovascular conditions Coronary artery disease involving tribal coronary artery of tribal heart, unspecified whether angina present S/P CABG (coronary artery bypass graft) Postsurgical aortocoronary bypass status documented in this encounter Care Teams Business Continuity Global Director Relationship Specialty Start Date End Date Rufus Kohler MD PCP - General Family Medicine 11/07/21 Jamshid Loza MD [address] [place] [id number] Assigned Heart and Vascular Provider 01/18/22 documented as of this encounter
--- OUTSIDE RECORDS SUMMARY | 2024-03-31 09:17 | XMS_ITS | Encounter Summary ---
Author Organization [facility] Address [address] [place] [address]. [place] [address] Care Team Providers Care Licensed Insurance Sales Agent Name Role Phone Rufus Kohler MD Primary Care Provider [phone] Yang Tran MD Unavailable Param Tesfaye MD Unavailable [phone] Encounter Details Date Type Department Care Team (Late st Contact Info) Description 01/27/2023 [facility] [place] Medical Advice [facility] Heart [facility] [id number] [place] [address] [address] [place] [address] Sony Mcneil Social History Tobacco Use Types Packs/Day Years Used Date Smoking Tobacco: Never Smokeless Tobacco: Never Alcohol Use Standard Drinks/Week Comments Not Currently 0 (1 standard drink = 0.6 oz pur e alcohol) Sex and Gender Information Value Date Recorded Sex Assigned at Not on file Gender Identity Not on file Sexual Orientation Not on file documented as of this encounter Plan of Treatment Not on file documented as of this encounter Visit Diagnoses Not on filedocumented in this encounter Care Teams Licensed Insurance Sales Agent Relationship Specialty Start Date End Date Rufus Kohler MD PCP - General Family Medicine 11/07/21 Yang Tran MD [address] [facility] [address] [place] [address] Assigned Heart and Vascular Provider 01/18/22 Param Tesfaye MD [address] [address] Assigned Surgical Provider 02/22/22 documented as of this encounter
--- OUTSIDE RECORDS SUMMARY | 2024-03-31 09:17 | XMS_ITS | Encounter Summary ---
Author Organization [place] Address [address] [facility] [place] [address] Care Team Providers Care Topographical Field Assistant Name Role Phone Rufus Kohler MD Primary Care Provider [phone] Jamshid Loza MD Unavailable Reason for Referral [...] ZZHC STATISTIC IV PUSH SINGLE INITIAL SUBSTANCE OH ECHO MYOCARD BX OH INJECTION, PERFLUTREN LIPID MICROSPHERES, PER ML OH TTE W/DOPPLER, COMPLETE OH IV PUSH SINGLE, INITIAL SUBSTANCE OH TTE W/DOPPLER, COMPLETE OH TTE W/DOPPLER, COMPLETE HC US GUIDE FOR PERICARDIOCENTESIS HC ECHO MYOCARD BX HC IV PUSH SINGLE, INITIAL SUBSTANCE HC STATISTIC IV PUSH SINGLE INITIAL SUBSTANCE HC ECHO COMPLETE W DOPPLER W CONTRAST HC ECHO COMPLETE W DOPPLER W/O CONTRAST Jamshid Loza MD [address] [facility] [facility] [address] [place] [address] [facility] [address] [facility] [address] [place] [address] Referral ID Status Reason Start Date Expiration Date Visits Re quested Visits Authorized [id number] Closed 01/26/2024 01/23/2025 1 1 Reason for Visit * Reason Onset Date Comments Appointment 01/21/2024 Encounter Details Date Type Department Care Team (Late st Contact Info) Description 01/21/2024 Telephone [facility] [address] [place] [address] Neda Justin, RN Appointment Social History Tobacco Use Types Packs/Day Years [...] Telephone Encounter - Parris Loja RN - 01/24/2024 10:04 AM CDT Images from the original note were not included. Jamshid Loza MD Anderson, Barbara E, RN Cc: Jem Rangel [facility] Heart Team 2 Caller: Unspecified (3 days ago, 2:16 PM) Thanks agree with all labs Orders placed for bmp, lipids and A1c Patient will schedule when he sets up the echo. * Telephone Encounter - Parris Loja RN - 01/24/2024 9:46 AM CDT Images from the original note were not included. Reply from Dr. Loza: Jamshid Loza MD Hiljus, Audrey G, RN Cc: Jem Rangel [facility] Heart Team 2 Caller: Unspecified (3 days ago, 2:16 PM) Thanks yes TTE with biplane Order placed for echo with biplane readings. Message to scheduling team to try to set up prior to OV 02/02/2024. Called patient to let him know to watch for a call from scheduling to set up the echo. Patient willnot be seeing his PCP until March as they are too booked to do his annual physical til then. Patientis due for bmp (lisinopril). He would like to check his A1c as he has been dieting. Patient has declined statin therapy, but will check lipids if Dr. Loza wants that done. Will message Dr. Loza to review * Telephone Encounter - Neda Justin RN - 01/21/2024 2:16 PM CDT Images from the original note were not included. Kaylah [facility] Pool25 minutes ago (1:50 PM) Topic: Non-Medical Question. Just making sure your working on my request from yesterday i need this done ELBA Thank you Kaylah Patient sent a [employer] message yesterday requesting DOT clearance, reply was sent that he needs to make an appointment. Called patient, says he needs to be cleared for the DOT right away. Discussed with patient that he needs to make an appointment for this as it has been more than one year since he was last seen. He was told by scheduling there are no openings til March. Offered 02/01 at 8:45am in [place] with Dr Loza. Vikash agreeable to this. Scheduling messaged to contact patient to finalize visit. Will message Dr Bryant ordering pre-visit echo per DOT requirements below. documented in this encounter Plan of Treatment Not on file documented as of this encounter Results * Hemoglobin A1c (01/27/2024 7:35 AM CDT) Hemoglobin A1C 5.5 <5.7 % 01/27/2024 8:08 AM CDT LABORATORY Comment: Normal <5.7% Prediabetes 5.7-6.4% ?? Diabetes 6.5% or higher Note: Adopted from ADA consensus guidelines. Blood STRUCTURE OF LEFT UPPER LIMB / Unknown Venipuncture / Unknown 01/27/2024 7:35 AM CDT 01/27/2024 7:39 AM CDT Jamshid Loza MD LAB - BLOOD ORDERABL ES RH LABORATORY [facility] Acute Care Lab [address] Lab (1st floor, no room number) [place] [address] * (ABNORMAL) Lipid Profile (01/27/2024 7:35 AM [...] > 8hrs? Yes 01/27/2024 5:56 PM CDT LABORATORY Blood STRUCTURE OF LEFT UPPER [...] Loza MD LAB - BLOOD ORDERABL ES UU LABORATORY [facility] [place] Core Lab [address] [facility] [address] Building, Room [address]580 [place] [address], [facility] RH LABORATORY [facility] Acute Care Lab [address] Lab (1st floor, no room number) [place] [address], [facility] * (ABNORMAL) Basic metabolic panel (01/27/2024 7:35 AM CDT) [facility] Sodium 141 135 - 145 mmol/L 01/27/2024 8:14 AM CDT LABORATORY Comment:Reference intervals for this test were [...] Loza MD LAB - BLOOD ORDERABL ES [facility] Acute Care Lab [address] Lab (1st floor, no room number) [place] [address], 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 Optison ([facility] #[id number]) given intravenously. Interpretation Summary Left ventricular systolic [...] Procedure Note Tereza Dillard MD - 01/26/2024 [id number]^DAGO^JAMSHID^Dave [facility] Echocardiography Laboratory [address] [place] [address] Name: KAYLAH LIU : 1960 Study Date: 01/26/2024 03:00 PM Age: 63 yrs Gender: Male Patient Location: [facility] Reason For Study: Ischemic heart disease due to coronary arteryobstruction (H), I Ordering Physician: JAMSHID LOZA Referring Physician: HO, JAMSHID K Performed By: Neo Juan BSA: 1.9 m2 Height: 66 in Weight: 167 lb HR: 76 BP: 128/80 mmHg Procedure Complete Echo Adult. Optison ([facility] #[id number]) given intravenously. 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
--- OUTSIDE RECORDS SUMMARY | 2024-03-31 09:17 | XMS_ITS | Encounter Summary ---
Author Organization [place] Address [address] [facility] [place] [address] Care Team Providers Care It Account Manager Name Role Phone Rufus Kohler MD Primary Care Provider Yang Tran MD Unavailable Encounter Details Date Type Department Care Team (Late st Contact Info) Description 01/21/2024 MyC Medical Advice [facility] [place] [address] [facility] [address] [place] [phone] Stella Emmanuel Social History Tobacco Use Types Packs/Day Years [...] on filedocumented in this encounter Care Teams It Account Manager Relationship Specialty Start Date End Date Rufus Kohler MD PCP - General Family Medicine 11/07/21 Yang Tran MD [address] [facility], [facility] [address] [place] [id number] Assigned Heart and Vascular Provider 01/18/22 documented as of this encounter
--- OUTSIDE RECORDS SUMMARY | 2024-03-31 09:17 | XMS_ITS | Encounter Summary ---
Author Organization [place] Address [address] [place] [address] Care Team Providers Care Tax Manager Name Role Phone Rufus Kohler MD Primary Care Provider [phone] Yang Tran MD Unavailable Encounter Details Date Type Department Care Team (Late st Contact Info) Description 01/27/2024 7:30 AM CDT [address] [place] [address] Coronary artery disease Social History Tobacco Use Types Packs/Day Years [...] Procedure Name Priority Date/Time Associated Diagnosis Comments LIPID PROFILE Routine 01/27/2024 7:35 AM CDT Coronary artery disease HEMOGLOBIN A1C Routine 01/27/2024 7:35 AM CDT Coronary artery disease BASIC METABOLIC PANEL Routine 01/27/2024 7:35 AM CDT Coronary artery disease documented in this encounter Results * Hemoglobin A1c (01/27/2024 7:35 AM CDT) Hemoglobin A1C 5.5 <5.7 % 01/27/2024 8:08 AM CDT RH LABORATORY Comment: Normal <5.7% Prediabetes 5.7-6.4% ?? Diabetes 6.5% or higher Note: Adopted from ADA consensus guidelines. Blood STRUCTURE OF LEFT UPPER LIMB / Unknown Venipuncture / Unknown 01/27/2024 7:35 AM CDT 01/27/2024 7:39 AM CDT Yang Tran MD LAB - BLOOD ORDERABL ES LABORATORY [facility] Acute Care Lab [address] [facility] Lab (1st floor, no room number) [place] [address] * (ABNORMAL) Lipid Profile (01/27/2024 7:35 AM [...] ??Greater than or equal to 220 mg/dL Yang Tran MD LAB - BLOOD ORDERABL ES LABORATORY [facility] [place] Core Lab [address] [facility] [address] Building, Room 3[address]580 [place] [address], [facility] LABORATORY [facility] Acute Care Lab [address] Lab (1st floor, no room number) [place] [address] * (ABNORMAL) Basic metabolic panel (01/27/2024 7:35 AM CDT) [facility] Sodium 141 135 - 145 mmol/L 01/27/2024 [...] >60 mL/min/1. 73m2 01/27/2024 8:14 AM CDT RH LABORATORY Calcium 9.3 8.8 - 10.2 mg/dL 01/27/2024 8:14 AM CDT RH LABORATORY Glucose 107(H) 70 - 99 mg/dL 01/27/2024 8:14 AM CDT RH LABORATORY Blood STRUCTURE OF LEFT UPPER LIMB / Unknown Venipuncture / Unknown 01/27/2024 7:35 AM CDT 01/27/2024 7:39 AM CDT Yang Tran MD LAB - BLOOD ORDERABL ES LABORATORY [facility] Acute Care Lab [address] Lab (1st floor, no room number) [place] [address] documented in this encounter Visit Diagnoses Diagnosis Coronary artery disease Coronary atherosclerosis of unspecified type of vessel, [place] or graft documented in this encounter Care Teams Tax Manager Relationship Specialty Start Date End Date Rufus Kohler MD PCP - General Family Medicine 11/07/21 Yang Tran MD [address] [place] [address] Assigned Heart and Vascular Provider 01/18/22 documented as of this encounter
--- OUTSIDE RECORDS SUMMARY | 2024-03-31 09:17 | XMS_ITS | Referral Summary ---
Author Organization [place] Address [address] [place] [address] Care Team Providers Care Motor Transport Inspector Name Role Phone Rufus Kohler MD Primary Care Provider [phone] Jamshid Loza MD Unavailable Encounters Date Type Department Care Team Description 02/02/2024 MyC Medical Advice [address] [place] [address] Jamshid Loza MD 02/02/2024 Telephone [facility] [address] [place] [address] [address] [place] [phone] Kalyn Estrella RN 02/02/2024 Travel 02/02/2024 8:45 AM CDT Office Visit [facility] [address] [place] [address] [address] [place] [address] Jamshid Loza MD Screening for heart disease (Primary Dx); Coronary artery disease involving [place] coronary artery of [place] heart, unspecified whether angina present; S/P CABG (coronary artery bypass graft) 01/27/2024 7:30 AM CDT Lab [facility] [address] [facility] [address] [place] [phone] Coronary artery disease 01/26/2024 Travel 01/26/2024 2:57 PM CDT - 01/26/2024 11:59 PM CDT Hospital Encounter [facility] Heart [facility] [address] [facility] [address] [place] [phone] Jamshid Loza MD 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); Dyspnea on exertion Discharge Disposition: Home or Self Care 01/26/2024 MyC Medical Advice [facility] [address] [facility] [address] [place] [phone] Jamshid Loza MD 01/21/2024 MyC Medical Advice [facility] [address] [facility] [address] [place] [address] Stella Emmanuel 01/21/2024 Telephone [facility] [address] [facility] [address] [place] [address] Neda Justin RN Appointment 01/20/2024 MyC Medical Advice [facility] [address] [facility] [address] [place] [address] Jamshid Loza MD [facility] Communication from Last 3 Months Allergies No known active allergies Medications Medication Sig Dispensed Refills Start Date End Date Status multivitamin w/minerals (THERA-VIT-M) tablet Take 1 tablet by mouth daily Active TURMERIC PO Take 1 tablet by mouth daily Active aspirin (ASA) 325 MG EC tabletIndications:C oronary artery disease involving [place] coronary artery of [place] heart, unspecified whether angina present Take 1 tablet (325 mg) by mouth daily 30 tablet 11/07/2021 Active Vitamin D, Cholecalciferol, 25 MCG (1000 UT) TABS Take 5,000 Units by mouth daily Active Rpovp-3-sfzh Ethyl Esters (FISH OIL OMEGA-3 FATTY ACID) [...] 10 MG tabletIndications:C oronary artery disease involving [place] coronary artery of [place] heart, unspecified whether angina present Take 1 tablet (10 mg) by mouth daily 90 tablet 3 02/02/2024 Active metoprolol succinate ER (TOPROL XL) 25 MG 24 hr tabletIndications:C oronary artery disease involving [place] coronary artery of [place] heart, unspecified whether angina present Take 1 tablet (25 mg) by mouth daily Appointment required for further refills 90 tablet 3 02/02/2024 Active nitroGLYcerin (NITROSTAT) 0.4 MG sublingual tabletIndications:C oronary artery disease involving [place] coronary artery of [place] heart, unspecified whether angina present For chest pain place 1 tablet under the tongue every 5 minutes for 3 doses. If symptoms persist 5 minutes after 1st dose call 911. 30 tablet 3 02/02/2024 Active Active Problems Problem Noted Date Diagnosed Date Coronary artery disease 11/01/2021 Unstable angina 10/30/2021 Abnormal cardiovascular stress test 10/30/2021 Immunizations Name Administration Dates Next Due TDAP Vaccine (Adacel) 08/27/2014 Social History Tobacco Use Types Packs/Day Years [...] T Respiratory Rate 18 11/08/2021 7:31 AM HIM TECH Oxygen Saturation 99% 02/02/2024 8:51 AM CDT Inhaled Oxygen Concentration - - Weight 76.3 kg (168 lb 3.2 oz) 02/02/2024 8:51 A M CDT Height 167.6 cm (5' 6) 02/02/2024 8:51 AM CDT Body Mass Index 27.15 02/02/2024 8:51 AM CDT Plan of Treatment Not on file Procedures Procedure Name Priority Date/Time Associated Diagnosis [...] - BLOOD ORDERABL ES Performing Organization Address City/[facility]/ZIP Co de Phone Number LABORATORY [facility] [place] Core Lab [address] [facility], Room [address] [place] [address], [facility] LABORATORY [facility] Acute Care Lab [address] Lab (1st floor, no room number) [place] [address] * Hemoglobin A1c (01/27/2024 7:35 AM CDT) Hemoglobin A1C 5.5 <5.7 % 01/27/2024 8:08 AM CDT LABORATORY Comment: Normal <5.7% Prediabetes 5.7-6.4% ?? Diabetes 6.5% or higher Note: Adopted from ADA consensus guidelines. Blood STRUCTURE OF LEFT UPPER LIMB / Unknown Venipuncture / Unknown 01/27/2024 7:35 AM CDT 01/27/2024 7:39 AM CDT Jamshid Loza MD LAB - BLOOD ORDERABL ES LABORATORY [facility] Acute Care Lab [address] Lab (1st floor, no room number) [place] [address] * (ABNORMAL) Basic metabolic panel [...] MD LAB - BLOOD ORDERABL ES LABORATORY [facility] Acute Care Lab [address] [facility] Lab (1st floor, no room number) [place] [address], [facility] * ECHO COMPLETE WITH CONTRAST (01/26/2024 3:35 PM CDT) [facility] Signature LVEF 55-60% CARDIOLOGY RESULTS Anatomical Region Laterality Modality Echocardiography 01/26/2024 3:00 PM CDT Narrative 01/26/2024 11:24 PM CDT [id number]^DAGO^JAMSHID^Dave [facility] Echocardiography Laboratory [address] [facility] [place] [address] Name: KAYLAH LIU : 1960 Study Date: 01/26/2024 03:00 PM Age: 63 yrs Gender: Male Patient Location: [facility] Reason For Study: 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 Optison ([facility] #[id number]) given intravenously. Interpretation Summary Left ventricular systolic [...] Procedure Note Tereza Dillard MD - 01/26/2024 [id number]^DAGO^JAMSHID^Dave [facility] Echocardiography Laboratory [address] [place] [address] Name: KAYLAH LIU : 1960 Study Date: 01/26/2024 03:00 PM Age: 63 yrs Gender: Male Patient Location: [facility] Reason For Study: Ischemic heart disease due to coronary arteryobstruction (H), I Ordering Physician: JAMSHID LOZA Referring Physician: JAMSHID LOZA Performed By: Neo Juan BSA: 1.9 m2 Height: 66 in Weight: 167 lb HR: 76 BP: 128/80 mmHg Procedure Complete Echo Adult. Optison ([facility] #[id number]) given intravenously. Interpretation Summary Left ventricular systolic [...] Advance Directives For more information, please contact: [phone] * Full Code (Latest Code Status on [...] patie nt/ legal decision maker Care Teams Motor Transport Inspector Relationship Specialty Start Date End Date Rufus Kohler MD PCP - General Family Medicine 11/07/21 Jamshid Loza MD [address], [facility] [address] [place] [address] Assigned Heart and Vascular Provider 01/18/22
--- OUTSIDE RECORDS SUMMARY | 2024-03-31 09:18 | XMS_ITS | Encounter Summary ---
Author Organization [place] Address [address] [place] [address] Care Team Providers Care Roofer Helper Name Role Phone Rufus Kohler MD Primary Care Provider [phone] Yamilex Singh Unavailable [phone] Yang Tran MD Unavailable Rosy Conrad PA-C Unavailable Unavailable Param Tesfaye MD Unavailable [phone] Reason for Visit * Reason Onset Date Comments Referral 01/16/2022 weak stream Encounter Details Date Type Department Care Team (Late st Contact Info) Description 01/16/2022 [facility] Urology Clinic [address] [place] [address] None Referral (weak stream) Social History Tobacco Use Types Packs/Day Years Used Date Smoking Tobacco: Never Smokeless Tobacco: Never Alcohol Use Standard Drinks/Week Comments Not Currently 0 (1 standard drink = 0.6 oz pur e alcohol) Sex and Gender Information Value Date Recorded Sex Assigned at Not on file Gender Identity Not on file Sexual Orientation Not on file COVID-19 Exposure Response Date Recorded In the last month, have you been in contact with someone who was confirmed or suspected to have Coronavirus / COVID-19? No / Unsure 01/15/2022 9:24 AM CDT documented as of this encounter Miscellaneous Notes * Telephone Encounter - Sheeba Chaudhry - 01/16/2022 3:58 PM CDT [facility] Phone Message May a detailed message be left on voicemail: yes Reason for Call: Appointment Intake Referring Provider Name: Yang Tran MD Diagnosis and/or Symptoms: Abnormal urinary stream, Post CABG weak stream, Pt concerned about damage from Pink cath This referral came through as urgent 3-5 days Action Taken: Message routed to: Other: [place] [facility] Travel Screening: Not Applicable documented in this encounter Plan of Treatment Not on file documented as of this encounter Visit Diagnoses Not on filedocumented in this encounter Care Teams Roofer Helper Relationship Specialty Start Date End Date Rufus Kohler MD PCP - General Family Medicine 11/07/[address] [facility] [address] [place] [address] Cardiac Rehabilitation Therapist 11/18/21 11/18/22 Yang Tran MD [address] [place] [address] Assigned Heart and Vascular Provider 01/18/22 Rosy Conrad PA-C Assigned Neuroscience Provider 01/25/22 07/10/22 Param Tesfaye MD [address] [place] [address] Assigned Surgical Provider 02/22/22 documented as of this encounter
--- OUTSIDE RECORDS SUMMARY | 2024-03-31 09:18 | XMS_ITS | Encounter Summary ---
Author Organization [place] Address [address] [place] [address] Care Team Providers Care Mix House Operator Name Role Phone Rufus Kohler MD Primary Care Provider [phone] Yang Tran MD Unavailable Param Tesfaye MD Unavailable [phone] Reason for Visit * Reason Onset Date Comments Hypertension 12/25/2022 [facility] Encounter Details Date Type Department Care Team (Late st Contact Info) Description 12/25/2022 Telephone [facility] [id number] [place] [address] [address] [place] [address] Jules Garcia Hypertension ([facility]) Social History Tobacco Use Types Packs/Day Years [...] encounter Miscellaneous Notes * Telephone Encounter - Jules Garcia - 12/25/2022 9:[address] [facility] Measures Blood Pressure guideline reviewed. Patients recent blood pressure is outside of guideline parameters. Called pt to review, no answer. Left voicemail message asking patient to check their blood pressure using a home blood pressure cuff or by going to a [facility]. Patient instructed to then call [phone] ([place]) and leave a message with their name, date of , and blood pressure reading that was completed within the last 24 hours and where it was completed. Will await call back for further review. MEDIC INSTRUCTOR documented in this encounter Plan of Treatment Not on file documented as of this encounter Visit Diagnoses Not on filedocumented in this encounter Care Teams Mix House Operator Relationship Specialty Start Date End Date Rufus Kohler MD PCP - General Family Medicine 11/07/21 Yang Tran MD [address] [facility] [address] [place] [id number] Assigned Heart and Vascular Provider 01/18/22 Param Tesfaye MD [address] [place] [address] Assigned Surgical Provider 02/22/22 documented as of this encounter
--- OUTSIDE RECORDS SUMMARY | 2024-03-31 09:18 | XMS_ITS | Encounter Summary ---
Author Organization [facility] Address [address] [place] [address]. [place] [address] Care Team Providers Care Church Warden Name Role Phone Rufus Kohler MD Primary Care Provider Yamilex Singh Unavailable [phone] Yang Tran MD Unavailable Param Tesfaye MD Unavailable [phone] Encounter Details Date Type Department Care Team (Late st Contact Info) Description 11/12/2022 [facility] [place] [facility] [address] [facility] [address] [place] [address] Yang Tran MD [address] [facility] [address] [place], [place] [address] Social History Tobacco Use Types Packs/Day Years Used Date Smoking Tobacco: Never Smokeless Tobacco: Never Alcohol Use Standard Drinks/Week Comments Not Currently 0 (1 standard drink = 0.6 oz pur e alcohol) Sex and Gender Information Value Date Recorded Sex Assigned at Not on file Gender Identity Not on file Sexual Orientation Not on file COVID-19 Exposure Response Date Recorded In the last 10 days, have yo u been in contact with someone who was confirmed or suspected to have Coronavirus/COVID-19? No / Unsure 11/13/2022 7:44 AM AQUATIC SCIENTIST documented as of this encounter Plan of Treatment Not on file documented as of this encounter Visit Diagnoses Not on filedocumented in this encounter Care Teams Church Warden Relationship Specialty Start Date End Date Rufus Kohler MD PCP - General Family Medicine 11/07/21 Yamilex Singh EP [facility] [address] [address] Cardiac Rehabilitation Therapist 11/18/21 11/18/22 Yang Tran MD [address] [facility] [address] [address] Assigned Heart and Vascular Provider 01/18/22 Param Tesfaye MD [address] [address] Assigned Surgical Provider 02/22/22 documented as of this encounter
--- OUTSIDE RECORDS SUMMARY | 2024-03-31 09:18 | XMS_ITS | Clinical Summary ---
Author Organization [facility] [place], [place] [address] Care Team Providers Care Tube Making Machine Operator Name Role Phone Pcp, No Primary Care Provider Unavailabl e Allergies No known active allergies Medications Medication Sig Dispensed Refills Start Date End Date Status metoprolol (LOPRESSOR) 25 mg tablet Take 0.5 tablets by mouth 2 times daily. 30 tablet 12/18/2014 Active lisinopril (PRINIVIL; ZESTRIL) 20 mg tablet Take 20 mg by mouth once daily. Active aspirin 325 mg tablet Take 325 mg by mouth once daily with a meal. Active multivitamin (MVI) tablet Take 1 tablet by mouth once daily. Active lactobacillus comb no.10 (PROBIOTIC) 20 billion cell cap Take 1 capsule by mouth before breakfast. Active omega 7-yvo-akp-fish oil (FISH OIL) 1,600-500-800 mg/5 mL liqd Take by mouth once daily. Active Cholecalciferol, Vitamin D3, (VITAMIN D-3) 5,000 unit tab Take 5,000 Units by mouth once daily. Active Social History Tobacco Use Types Packs/Day Years Used Date Smoking Tobacco: Never Assessed Sex and Gender Information Value Date Recorded Sex Assigned at Not on file Gender Identity Not on file Sexual Orientation Not on file Plan of Treatment Health Maintenance Due Date Last Done Comments Tdap 1972 Depression screening for age 12+ 1973 HIV for age 15-65 1976 BMI (ht and wt on same day) for age 18+ 1979 Hepatitis C screening for ag e 18-79 1979 Tetanus booster 1981 Colonoscopy through age 75 2006 Lipids for age 45-75 2006 Zoster (shingles) series for age 50+ (1 of 2) 2011 COVID-19 vaccine series ( - 2022-24 season) 2023 Influenza for age 50-64 06/25/2024 Pneumococcal series for age 6-64 Aged Out No longer eligible based on patient's age to complete this topic Care Teams Tube Making Machine Operator Relationship Specialty Start Date End Date Pcp, No . PCP - General 10/13/23
--- OUTSIDE RECORDS SUMMARY | 2024-03-31 09:18 | XMS_ITS | Encounter Summary ---
Author Organization [facility] Address [address] [place] [address]. [place] [address] Care Team Providers Care Interior Design Coordinator Name Role Phone Rufus Kohler MD Primary Care Provider [phone] Yamilex Singh Unavailable Yang Tran MD Unavailable Rosy Conrad PA-C Unavailable Unavailable Param Tesfaye MD Unavailable Reason for Visit * Reason Onset Date Comments Patient Request 04/21/2022 Encounter Details Date Type Department Care Team (Late st Contact Info) Description 04/21/2022 [facility] [place] [address] [facility] [address] [place] [address] Param Tesfaye MD [address] [facility] [address] [place], [place] [address] Patient Request Social History Tobacco Use Types Packs/Day Years [...] suspected to have Coronavirus/COVID-19? No / Unsure 04/20/2022 3:42 PM CDT documented as of this encounter Miscellaneous Notes * Telephone Encounter - Janie Rose - 04/21/2022 3:33 PM CDT [facility] Call Center Phone Message May a detailed message be left on voicemail: yes Reason for Call: Patient is calling about his procedure with Dr. Tesfaye on 04/23/22. He was told byhis insurance company and cost of care that the cysto was covered at the hospital, but the providerwas not covered and he's wondering if there's anything he can do about that as he cannot afford to take on that expense. He'd Like a callback to discuss as he's talked with his insurance company and with [facility] and they directed them to the clinic for answers. Please reach out to patient. Thankyou. Action Taken: Other: Urology Travel Screening: Not Applicable documented in this encounter Plan of Treatment Not on file documented as of this encounter Visit Diagnoses Not on filedocumented in this encounter Care Teams Interior Design Coordinator Relationship Specialty Start Date End Date Rufus Kohler MD PCP - General Family Medicine 11/07/21 Yamilex Singh EP [facility] [address] [address] Cardiac Rehabilitation Therapist 11/18/21 11/18/22 Yang Tran MD [address] [facility] [address] [address] Assigned Heart and Vascular Provider 01/18/22 Roys Conrad PA-C Assigned Neuroscience Provider 01/25/22 07/10/22 Param Tesfaye MD [address] [address] Assigned Surgical Provider 02/22/22 documented as of this encounter
--- OUTSIDE RECORDS SUMMARY | 2024-03-31 09:18 | XMS_ITS | Encounter Summary ---
Author Organization [facility] Address [address] [place] [address] Care Team Providers Care Pet Care Worker Name Role Phone [facility]- Primary Care Provider Rufus Kohler MD Primary Care Provider [phone] Yamilex Singh Unavailable [phone] Yang Tran MD Unavailable Rosy Conrad PA-C Unavailable Unavailable Param Tesfaye MD Unavailable Encounter Details Date Type Department Care Team (Late st Contact Info) Description 10/24/2021 Documentation Only INTERFACED REPORT Unknown, Provider Social History Tobacco Use Types Packs/Day Years Used Date Smoking Tobacco: Never Assessed Sex and Gender Information Value Date Recorded Sex Assigned at Not on file Gender Identity Not on file Sexual Orientation Not on file COVID-19 Exposure Response Date Recorded In the last month, have you been in contact with someone who was confirmed or suspected to have Coronavirus / COVID-19? Yes 10/24/2021 5:42 PM PERSONNEL SUPERVISOR documented as of this encounter Plan of Treatment Not on file documented as of this encounter Visit Diagnoses Not on filedocumented in this encounter Care Teams Pet Care Worker Relationship Specialty Start Date End Date [facility]- [address] [place] [address] PCP - General 01/02/21 11/06/21 Rufus Kohler MD [address] [place] [address] PCP - General Family Medicine 11/07/[address] [facility] [address] [address] Cardiac Rehabilitation Therapist 11/18/21 11/18/22 Yang Tran MD [address], [facility] [address] [address] Assigned Heart and Vascular Provider 01/18/22 Rosy Conrad PA-C Assigned Neuroscience Provider 01/25/22 07/10/22 Param Tesfaye MD [address] [address] Assigned Surgical Provider 02/22/22 documented as of this encounter
--- OUTSIDE RECORDS SUMMARY | 2024-03-31 09:18 | XMS_ITS | Data Portability ---
Author Organization [place] [facility] Address [address] [facility] [address] [place] [address] Assessment No assessment recorded. Plan of Treatment Reminders Order Date Submit Date Provider Last Modified By Organization Details Last Modified Time Details Appointments None record ed. Lab None record ed. Referral None record ed. Procedures None record ed. Surgeries None record ed. Imaging None record ed. Medication Orders None record ed. Patient TargetsNo targets recorded. Patient Instructions Encounter Date Encounter Id Patient Instructions Last Modified By Organization Details Last Modified Time 06/17/2021 [id number] free PSA percent OK will get MRI prostate done and call with report. [email or web address] Not available 06/17/2021 16:36:43 Reason for Referral None Reported. Results Created Date Observation Date Name Description Value Unit Range Abnormal Flag LastModifiedBy Organization Detail LastModifiedTime 07/02/20 21 06/27/2021 MRI, prost ate, w/wo contr ast No observ ation record ed. Not Available 07/30/2021 17:08:11 Result Notes None recorded. Problems Name Status Onset Date Resolution Date Notes Provider Name and Address Organization Details Recorded Time Prostate specific antigen above reference range Active Mathieu Morillo MD [address] [place] [address],[address], [address], [facility] 06/17/2021 16:12:59 Problem Notes None recorded. Procedures Surgical History Date Name Laterality Status Provider Name and Address Organization Details Recorded Time 02/22/20 13 Us urine capacity measure completed Not Available [facility] 04/04/2020 19:37:35 10/25/19 12 Colonoscopy completed Mathieu Morillo MD [address] [place] [address],[address], [address], [facility] 06/17/2021 16:14:58 Appendectomy add-on completed Not Available [facility] 04/04/2020 19:37:35 Imaging Results Imaging Date Name Status LastModified by Organiz ation Details LastModified Time 06/27/2021 MRI, prostate, w/wo contrast completed Information not available 07/30/2021 17:08:11 Procedure Notes None recorded. Medical Equipment None Reported. Allergies No known drug allergies Medications Name Sig Start Date Stop Date Status Note LastModified by Organization Details LastModified Time lisinopril 20 mg tablet TAKE 1 TABLET BY MOUTH DAILY active Not Available Not Available No t Available Vitals Date Recorded Body height Body mass index (BMI) Body weight Provider Name and Address Organization Details Last Updated DateTime 06/17/2021 167.64 cm 30.7 kg/m2 22388.55 g Mathieu Morillo MD [address] [facility],[address], [place], [address], [facility] 06/17/2021 16:12:39 Social History Question Answer Notes LastModified by Organizat ion Details LastModified Time Tobacco Smoking Status Never Smoker Not Available [facility] 04/04/2020 02:26:40 What Is Your Level Of Alcohol Consumption? Occasional [email or web address] Information not available 06/17/2021 What Is Your Level Of Caffeine Consumption? Occasional [email or web address] Information not available 06/17/2021 Are You Currently Employed? Yes [email or web address] Information not available 06/17/2021 Who Is Your Employer? Self [email or web address] Information not available 06/17/2021 What Is Your Occupation? [employer] [email or web address] Information not available 06/17/2021 Race White Information n ot available 04/04/2020 Recreational Drug Use No [email or web address] Information not available 06/17/2021 Marital Status Single Informati on not available 04/04/2020 What Was The Date Of Your Most Recent Tobacco Screening? 06/17/2021 [email or web address] Information not available 06/17/2021 Are You Sexually Active? Yes [email or web address] Information not available 06/17/2021 Do You Use Any Illicit Or Recreational Drugs? No [email or web address] Information not available 06/17/2021 Sex: Male Functional Status None recorded. Mental Status None recorded. Family History Relationship Description Onset Age of this Age Resolved Age Notes Father Heart disease Notes:Diabetes:Mother High cholesterol:Mother Heart disease:Father Gout:Mother Hypertension:Mother Arthritis:Father Medical History Condition Response High Blood Pressure Y Kidney Stones N Depression N Lung Disease N GERD/Acid Reflux N Sexually Transmitted Infection N Cancer N High Cholesterol Y Diabetes N Bleeding Disorder N Heart Disease N Past Encounters Encounter ID Performer Location Encounter Start Date Encounter Closed Date Diagnosis/Indication Diagnosis SNOMED-CT Code [id number] Mathieu Morillo MD [facility] [address] [place] [address] 06/17/2021 15:39:25 06/20/2021 10:06:32 Prostate specific antigen above reference range [id number] Health Concerns Section Related Observation LastModified by Organization Detai ls LastModified Time None Recorded Concern Status LastModified by Organization Details LastModified Time None Recorded Advance Directives Directive None Recorded Payers Encounter Date Sequence Insurance Name Policy Number Policy George Covered Member ID George Member ID Guarantor Name 06/17/2021 1 [employer] (PPO) [id number] Edilberto Robles [id number] Edilberto Robles Notes Date Note Type Note Provider Name and Address Organization Details Recorded Time 06/17/2021 text/html HPI Notes: sent for evaluation of elevated PSA. had high PSA 5+ years ago seen urology then, no biopsy done and PSAsince then wer OK, this year had done twice and was high, 5.7 with free PSA of 1,0, free % of 18. voiding OK, no heme/dysuria/UTI. fam hx neg for prostate issues. Mathieu Morillo MD [address] [facility], [place], [address], [place] [facility] 06/17/2021 16:37:27
== END 2024-03-31 09:15 | disposition home or self-care (01) ==
PROVIDERS: PCP Family Medicine; Visit Provider Family Medicine
DX: Z00.00 Encounter for general adult medical examination without abnormal findings (principal); E78.00 Pure hypercholesterolemia, unspecified; E11.9 Type 2 diabetes mellitus without complications; Z12.5 Encounter for screening for malignant neoplasm of prostate; Z95.1 Presence of aortocoronary bypass graft
CPT/HCPCS: 80053; 82043; 82570; G0103

== ENCOUNTER 2024-07-13 15:27 | Outpatient (CLI) | payer OTHER, SELFPAY ==
--- OUTSIDE RECORDS SUMMARY | 2024-07-14 08:29 | XMS_ITS | Encounter Summary ---
Author Organization [facility] Address [address] [place] [address]. [place] [address] Care Team Providers Care Auto Apprentice Mechanic Name Role Phone Rufus Kohler MD Primary Care Provider [phone] Yamilex Singh Unavailable [phone] Yang Tran MD Unavailable Param Tesfaye MD Unavailable [phone] Encounter Details Date Type Department Care Team (Late st Contact Info) Description 11/12/2022 [facility] [place] [facility] [address] [facility] [address] [place] [address] Yang Tran MD [address] [facility] [address] [place], [place] [id number] Social History Tobacco Use Types Packs/Day Years [...] Coronavirus/COVID-19? 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 documented as of this encounter Plan of Treatment Not on file documented as of this encounter Visit Diagnoses Not on filedocumented in this encounter Care Teams Auto Apprentice Mechanic Relationship Specialty Start Date End Date Rufus Kohler MD PCP - General Family Medicine 11/07/21 Yamilex Singh EP [facility] [address] [address] Cardiac Rehabilitation Therapist 11/18/21 11/18/22 Yang Tran MD [address] [facility] [address] [address] Assigned Heart and Vascular Provider 01/18/22 Param Tesfyae MD [address] [address] Assigned Surgical Provider 02/22/22 documented as of this encounter
--- OUTSIDE RECORDS SUMMARY | 2024-07-14 08:29 | XMS_ITS | Clinical Summary ---
Author Organization [facility] Address [place], [place] [address] Care Team Providers Care Saw Maker Name Role Phone Pcp, No Primary Care [...] capsule by mouth before breakfast. Active omega 7-dme-yri-fish oil (FISH OIL) 1,600-500-800 mg/5 mL liqd [...] (1 of 2) 2011 COVID-19 vaccine series (2022-24 season) 2024 Influenza for age 50-64 06/25/2024 Pneumococcal series for age 6-64 Aged Out No longer eligible based on patient's age to complete this topic Care Teams Saw Maker Relationship Specialty Start Date End Date Pcp, No . PCP - General 10/13/23
--- OUTSIDE RECORDS SUMMARY | 2024-07-14 08:29 | XMS_ITS | Encounter Summary ---
Author Organization [facility] Address [address] [place] [address] Care Team Providers Care Park Police Name Role Phone Rufus Kohler MD Primary Care Provider [phone] Yang Tran MD Unavailable Param Tesfaye MD Unavailable [phone] Reason for Visit * Reason Onset Date Comments Hypertension 12/25/2022 [facility] Encounter Details Date Type Department Care Team (Late st Contact Info) Description 12/25/2022 Telephone [facility] Heart [facility] [address] [place] [address] [address] [place] [address] Jules Garcia Hypertension ([facility]) Social History Tobacco Use Types Packs/Day Years [...] Jules Garcia - 12/25/2022 9:56 AM CST [facility] Measures Blood Pressure guideline reviewed. Patients recent blood pressure is outside of guideline parameters. Called pt to review, no answer. Left voicemail message asking patient to check their blood pressure using a home blood pressure cuff or by going to a [facility]. Patient instructed to then call [phone] ([place]) and leave a message with their name, date of , and blood pressure reading that was completed within the last 24 hours and where it was completed. Will await call back for further review. E BALANCER documented in this encounter Plan of Treatment Not on file documented as of this encounter Visit Diagnoses Not on filedocumented in this encounter Care Teams Park Police Relationship Specialty Start Date End Date Rufus Kohler MD PCP - General Family Medicine 11/07/21 Yang Tran MD [address] [facility] [address] [address] Assigned Heart and Vascular Provider 01/18/22 Param Tesfaye MD [address] [address] Assigned Surgical Provider 02/22/22 documented as of this encounter
--- OUTSIDE RECORDS SUMMARY | 2024-07-14 08:29 | XMS_ITS | Encounter Summary ---
Author Organization [facility] Address [address] [place] [address] Care Team Providers Care Flag Signalman Name Role Phone Rufus Kohler MD Primary Care Provider [phone] Yamilex Singh Unavailable [phone] Yang Tran MD Unavailable Rosy Conrad PA-C Unavailable Unavailable Param Tesfaye MD Unavailable [phone] Reason for Visit * Reason Onset Date Comments Referral 01/16/2022 weak stream Encounter Details Date Type Department Care Team (Late st Contact Info) Description 01/16/2022 [facility] [address] [place] [address] None Referral (weak stream) Social [...] days Action Taken: Message routed to: Other: [place] [facility] Travel Screening: Not Applicable documented in this encounter Plan of Treatment Not on file documented as of this encounter Visit Diagnoses Not on filedocumented in this encounter Care Teams Flag Signalman Relationship Specialty Start Date End Date Rufus Kohler MD PCP - General Family Medicine 11/07/21 Yamilex Singh EP [facility] [address] [address] Cardiac Rehabilitation Therapist 11/18/21 11/18/22 Yang Tran MD [address] [facility] [address] [address] Assigned Heart and Vascular Provider 01/18/22 Rosy Conrad PA-C Assigned Neuroscience Provider 01/25/22 07/10/22 Param Tesfaye MD [address] [address] Assigned Surgical Provider 02/22/22 documented as of this encounter
--- OUTSIDE RECORDS SUMMARY | 2024-07-14 08:29 | XMS_ITS | Encounter Summary ---
Author Organization [facility] Address [address] [place] [address]. [place] [address] Care Team Providers Care Thermocouple Tester Name Role Phone Rufus Kohler MD Primary Care Provider Yang Tran MD Unavailable Param Tesfaye MD Unavailable [phone] Encounter Details Date Type Department Care Team (Late st Contact Info) Description 01/27/2023 [facility] [place] [facility] Adv[facility] Heart [facility] [address] [place] [address] [address] [place] [address] Sony Mcneil Social History Tobacco [...] on filedocumented in this encounter Care Teams Thermocouple Tester Relationship Specialty Start Date End Date Rufus Kohler MD PCP - General Family Medicine 11/07/21 Yang Tran MD [address], [facility] [address] [place] [address] Assigned Heart and Vascular Provider 01/18/22 Param Tesfaye MD [address] [address] Assigned Surgical Provider 02/22/22 documented as of this encounter
--- OUTSIDE RECORDS SUMMARY | 2024-07-14 08:29 | XMS_ITS | Encounter Summary ---
Author Organization [facility] Address [address] [place] [address] Care Team Providers Care Hose Finisher Name Role Phone [facility]- Primary Care Provider Rufus Kohler MD Primary Care Provider Yamilex Singh Unavailable [phone] Yang Tran MD Unavailable Rosy Conrad PA-C Unavailable Unavailable Param Tesfaye MD Unavailable [phone] Encounter Details Date Type Department Care [...] Coronavirus / COVID-19? Yes 10/24/2021 5:42 PM TUBE DRAWER documented as of this encounter Plan of Treatment Not on file documented as of this encounter Visit Diagnoses Not on filedocumented in this encounter Care Teams Hose Finisher Relationship Specialty Start Date End Date [facility]- [address] [place] [address] PCP - General 01/02/21 11/06/21 Rufus Kohler MD [address] [place] [address] PCP - General Family Medicine 11/07/21 Yamilex Singh EP [facility] [address] [address] Cardiac Rehabilitation Therapist 11/18/21 11/18/22 Yang Tran MD [address], [facility] [address] [address] Assigned Heart and Vascular Provider 01/18/22 Rosy Conrad PA-C Assigned Neuroscience Provider 01/25/22 07/10/22 Param Tesfaye MD [address] [address] Assigned Surgical Provider 02/22/22 documented as of this encounter
--- OUTSIDE RECORDS SUMMARY | 2024-07-14 08:29 | XMS_ITS | Encounter Summary ---
Author Organization [facility] Address [address] [facility] [place] [address] Care Team Providers Care Fabrication And Layout Craftsman Name Role Phone Rufus Kohler MD Primary Care Provider [phone] Yang Tran MD Unavailable Encounter Details Date Type Department Care Team (Late st Contact Info) Description 01/21/2024 [facility] Medical Advice [facility] [place] [address] [facility] [address] [id number] Stella Emmanuel Social History Tobacco Use Types [...] on filedocumented in this encounter Care Teams Fabrication And Layout Craftsman Relationship Specialty Start Date End Date Rufus Kohler MD PCP - General Family Medicine 11/07/21 Yang Tran MD [address] [facility] [address] [address] Assigned Heart and Vascular Provider 01/18/22 documented as of this encounter
--- OUTSIDE RECORDS SUMMARY | 2024-07-14 08:29 | XMS_ITS | Encounter Summary ---
Author Organization [place] Address [address] [place] [address]. [place] [address] Care Team Providers Care Buckle Stringer Name Role Phone Rufus Kohler MD Primary Care Provider Yamilex Singh Unavailable Yang Tran MD Unavailable Rosy Conrad PA-C Unavailable Unavailable Param Tesfaye MD Unavailable Reason for Visit * Reason Onset Date Comments Patient Request 04/21/2022 Encounter Details Date Type Department Care Team (Late st Contact Info) Description 04/21/2022 [facility] [place] [address] [facility] [address] [place] [address] Param Tesfaye MD [address] [facility] [address] [place], [place] [id number] Patient Request Social History Tobacco Use Types [...] Janie Rose - 04/21/2022 3:33 PM CDT [facility] Call Center Phone Message May a [...] on filedocumented in this encounter Care Teams Buckle Stringer Relationship Specialty Start Date End Date Rufus Kohler MD PCP - General Family Medicine 11/07/21 Yamilex Singh EP [facility] [address] [id number] Cardiac Rehabilitation Therapist 11/18/21 11/18/22 Yang Tran MD [address] [address] Assigned Heart and Vascular Provider 01/18/22 Rosy Conrad PA-C Assigned Neuroscience Provider 01/25/22 07/10/22 Param Tesfaye MD [address] [id number] Assigned Surgical Provider 02/22/22 documented as of this encounter
--- OUTSIDE RECORDS SUMMARY | 2024-07-14 08:29 | XMS_ITS | Referral Summary ---
Author Organization [place] Address [address] [place] [address] Care Team Providers Care Half Backer Name Role Phone Rufus Kohler MD Primary Care Provider [phone] Yang Tran MD Unavailable Allergies No known active allergies Medications Medication Sig Dispensed Refills Start Date End Date Status multivitamin w/minerals (THERA-VIT-M) tablet Take 1 tablet by mouth daily Active TURMERIC PO Take 1 tablet by mouth daily Active aspirin (ASA) 325 MG EC tabletIndications:C oronary artery disease involving [place] coronary artery of [place] heart, unspecified whether angina present Take 1 tablet (325 mg) by mouth daily 30 tablet 11/07/2021 Active Vitamin D, Cholecalciferol, 25 MCG (1000 UT) TABS Take 5,000 Units by mouth daily Active Eaarp-8-cwis Ethyl Esters (FISH OIL OMEGA-3 FATTY ACID) [...] 10 MG tabletIndications:C oronary artery disease involving [place] coronary artery of [place] heart, unspecified whether angina present Take 1 tablet (10 mg) by mouth daily 90 tablet 3 02/02/2024 Active metoprolol succinate ER (TOPROL XL) 25 MG 24 hr tabletIndications:C oronary artery disease involving [place] coronary artery of [place] heart, unspecified whether angina present Take 1 tablet (25 mg) by mouth daily Appointment required for further refills 90 tablet 3 02/02/2024 Active nitroGLYcerin (NITROSTAT) 0.4 MG sublingual tabletIndications:C oronary artery disease involving [place] coronary artery of [place] heart, unspecified whether angina present For chest [...] T Respiratory Rate 18 11/08/2021 7:31 AM COMPOSITE WORKER Oxygen Saturation 99% 02/02/2024 8:51 AM CDT Inhaled Oxygen Concentration - - Weight 76.3 kg (168 lb 3.2 oz) 02/02/2024 8:51 A M CDT Height 167.6 cm (5' 6) 02/02/2024 8:51 AM CDT Body Mass Index 27.15 02/02/2024 8:51 AM CDT Plan of Treatment Not on file Procedures Procedure Name Priority Date/Time Associated Diagnosis Comments BASIC METABOLIC PANEL Routine 01/27/2024 7:35 AM CDT Coronary artery disease LIPID PROFILE Routine 01/27/2024 7:35 AM CDT Coronary artery disease from Last 3 Months or Most Recently Relevant to Health Maintenance Results * (ABNORMAL) Lipid Profile (01/27/2024 7:35 AM [...] Tran MD LAB - BLOOD ORDERABL ES [facility] [place] [facility] [address] [facility] [address], [address] [place] [address], [facility] [address] Lab (1st floor, no room number) [place] [address], [facility] * (ABNORMAL) Basic metabolic panel [...] Tran MD LAB - BLOOD ORDERABL ES [facility] [address] Lab (1st floor, no room number) [place] [address], [facility] from Last 3 Months or Most Recently Relevant to Health Maintenance Advance Directives For more information, please contact: [phone] * Full Code (Latest Code Status on [...] patie nt/ legal decision maker Care Teams Half Backer Relationship Specialty Start Date End Date Rufus Kohler MD PCP - General Family Medicine 11/07/21 Yang Tran MD [address] [address] Assigned Heart and Vascular Provider 01/18/22
--- OUTSIDE RECORDS SUMMARY | 2024-07-14 08:29 | XMS_ITS | Clinical Summary ---
Author Organization [place] Address [address] [place] [address] Care Team Providers Care Resident Intern Name Role Phone Rufus Kohler MD Primary Care Provider [phone] Yang Tran MD Unavailable Allergies No known active allergies Medications Medication Sig Dispensed Refills Start Date End Date Status multivitamin w/minerals (THERA-VIT-M) tablet Take 1 tablet by mouth daily Active TURMERIC PO Take 1 tablet by mouth daily Active aspirin (ASA) 325 MG EC tabletIndications:C oronary artery disease involving [place] coronary artery of [place] heart, unspecified whether angina present Take 1 tablet (325 mg) by mouth daily 30 tablet 11/07/2021 Active Vitamin D, Cholecalciferol, 25 MCG (1000 UT) TABS Take 5,000 Units by mouth daily Active Hugjw-7-pvkn Ethyl Esters (FISH OIL OMEGA-3 FATTY ACID) [...] 10 MG tabletIndications:C oronary artery disease involving [place] coronary artery of [place] heart, unspecified whether angina present Take 1 tablet (10 mg) by mouth daily 90 tablet 3 02/02/2024 Active metoprolol succinate ER (TOPROL XL) 25 MG 24 hr tabletIndications:C oronary artery disease involving [place] coronary artery of [place] heart, unspecified whether angina present Take 1 tablet (25 mg) by mouth daily Appointment required for further refills 90 tablet 3 02/02/2024 Active nitroGLYcerin (NITROSTAT) 0.4 MG sublingual tabletIndications:C oronary artery disease involving [place] coronary artery of [place] heart, unspecified whether angina present For chest [...] T Respiratory Rate 18 11/08/2021 7:31 AM MANAGER ETL Oxygen Saturation 99% 02/02/2024 8:51 AM CDT [...] IMMUNIZATION (1 of 2) 2011 RSV VACCINE (1 - Risk 60-74 years 1-dose series) 2021 COLONOSCOPY 10/24/2021 10/24/2011 COLORECTAL CANCER SCREENING 10/24/2021 PHQ-2 (once per calendar year) 2023 COVID-19 Vaccine ( - season) 2024 INFLUENZA VACCINE (#1) 2024 DTAP/TDAP/TD IMMUNIZATION (2 - Td or [...] LAB - BLOOD ORDERABL ES [facility] [place] [facility] [address] [facility] [address] Building, Room [address] [place] [address], [place] [facility] [address] Lab (1st floor, no room number) [place] [address], [facility] * (ABNORMAL) Basic metabolic panel [...] - 5.3 mmol/L 01/27/2024 8:14 AM CDT RH LABORATORY Chloride 106 98 - 107 mmol/L 01/27/2024 8:14 AM CDT [facility] LAB[facility]ORY Carbon Dioxide (CO2) 23 22 - 29 mmol/L 01/27/2024 8:14 AM CDT [facility] LAB[facility] Anion Gap 12 7 - 15 mmol/L 01/27/2024 8:14 AM CDT [facility] LAB[facility] Urea Nitrogen 19.0 8.0 - 23.0 [...] LAB - BLOOD ORDERABL ES [facility] [address] Lab (1st floor, no room number) [place] [address], [facility] from Last 3 Months or Most Recently Relevant to Health Maintenance Advance Directives For more information, please contact: [phone] * Full Code (Latest Code Status on [...] patie nt/ legal decision maker Care Teams Resident Intern Relationship Specialty Start Date End Date Rufus Kohler MD PCP - General Family Medicine 11/07/21 Yang Tran MD [address] [id number] Assigned Heart and Vascular Provider 01/18/22
== END 2024-07-13 15:28 | disposition home or self-care (01) ==
LOC: NFLDREF 07-14 08:28
PROVIDERS: PCP Family Medicine; Referring Provider Family Medicine; Visit Provider Family Medicine
DX: R97.20 Elevated prostate specific antigen [PSA] (principal); Z12.5 Encounter for screening for malignant neoplasm of prostate
CPT/HCPCS: G0103

== ENCOUNTER 2024-08-28 14:22 | Outpatient (CLI) | payer OTHER, SELFPAY | END 2024-08-28 14:23 | disposition home or self-care (01) | LOC: US 14:23 | PROVIDERS: PCP Family Medicine; Visit Provider Family Medicine | DX: M79.662 Pain in left lower leg (principal); R20.0 Anesthesia of skin | CPT/HCPCS: 93922 ==

== ENCOUNTER 2025-09-26 08:22 | Outpatient (CLI) | payer OTHER, SELFPAY | END 2025-09-26 08:23 | disposition home or self-care (01) | LOC: NFLDREF 10-01 12:41 | PROVIDERS: PCP Family Medicine; Referring Provider Family Medicine; Visit Provider Family Medicine | DX: Z95.1 Presence of aortocoronary bypass graft (principal) | CPT/HCPCS: 80053; 80061 ==